=== PATIENT | male | born 1945 | race Caucasian/White ===

== ENCOUNTER 2016-08-16 13:12 | Inpatient (IN) | payer OTHER ==
[~2016-08-16] VITALS: Ht 177.8 cm; Wt 93.0 kg
[~2016-08-16 13:12] MED LIST: SODIUM CHLORIDE 0.9% 1000ML 1,000 ML IV SCH
--- NOTE | 2016-08-16 13:28 | DIAGNOSTIC IMAGING REPORT ---
HEAD CT NONCONTRAST CT DOSE: 638.56 mGycm HISTORY: Mental status change Stroke. TECHNIQUE: Multiaxial CT images of the head were performed without the use of intravenous contrast. Comparison: None. Findings: The paranasal sinuses and mastoid air cells are clear. Small left cerebellar infarct. Old right occipital infarct. Old left posterior parietal infarct. 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 No acute intracranial abnormality. Electronically signed by: Adolph Hernandez M.D. 08/16/2016 1:26 PM Dictated Date/Time: 08/16/2016 1:25 PM
[2016-08-16] MEDS ORDERED: METO25TA3 PO (13:45)
[2016-08-16] MEDS ORDERED: LOSA50TA6 PO (13:45)
[2016-08-16] MEDS ORDERED: PRAV20TA PO (13:45)
[2016-08-16] MEDS ORDERED: GLIP-199 PO (13:45)
[2016-08-16] MEDS ORDERED: HYDR-5688 PO (13:45)
[2016-08-16] MEDS ORDERED: FENO145T26 PO (13:45)
[2016-08-16] MEDS ORDERED: MAGN400T6 PO (13:47)
[2016-08-16 13:51] LABS: INR 1.1 (0.9-1.1); PARTIAL THROMBOPLASTIN RATIO 0.8; PROTHROMBIN TIME (PATIENT) 11.6 SECONDS (9.0-12.0)
[2016-08-16 13:57] LABS: BLOOD UREA NITROGEN 31 mg/dl (7-18); BUN/CREATININE RATIO 10.2 (10-20); CARBON DIOXIDE 24 mmol/L (21-32); CHLORIDE 104 mmol/L (98-107); GLUCOSE 288 mg/dl (70-99); POTASSIUM 4.1 mmol/L (3.5-5.1); SODIUM 139 mmol/L (136-145)
[2016-08-16 14:05] LABS: CKMB/CK RATIO 1.4 (0-3.0)
[2016-08-16] MEDS ORDERED: SODIUM CHLORIDE 0.9% 1000ML 1,000 ML IV STA (14:39)
[2016-08-16] MEDS ORDERED: ASPIRIN 81 MG CHEW PO STA (14:39)
[2016-08-16] MEDS ORDERED: METHYLPREDNISOLONE 125 MG VIAL IV STA (14:39)
[2016-08-16 15:26] LABS: HEMATOCRIT 38.7 % (42-52); MEAN CELL VOLUME 88.6 fL (80-100); MEAN CORPUSCULAR HEMOGLOBIN 30.4 pg (25-34); MEAN CORPUSCULAR HGB CONC 34.4 g/dl (32-36); MEAN PLATELET VOLUME 11.6 fL (7.4-10.4); PLATELET COUNT 149 K/uL (130-400); RED BLOOD COUNT 4.37 M/uL (4.7-6.1); WHITE BLOOD COUNT 7.93 K/uL (4.8-10.8)
[2016-08-16] MEDS ORDERED: ACETAMINOPHEN 325 MG TAB PO PRN (15:30)
[2016-08-16] MEDS ORDERED: ONDANSETRON INJ 2 MG/ML 2 ML VIAL IV PRN (15:30)
[2016-08-16] MEDS ORDERED: HydrALAZINE HCL 20 MG/ML VIAL IV. PRN (15:30)
[2016-08-16] MEDS ORDERED: ALUMINUM/MAGNESIUM/SIMETH (MAALOX MAX) 30 ML UDC PO PRN (15:30)
[2016-08-16] MEDS ORDERED: MAGNESIUM HYDROXIDE SUSP 30 ML UDC PO PRN (15:30)
[2016-08-16] MEDS ORDERED: METOPROLOL TARTRATE 1 MG/ML VIAL IV PRN (15:30)
[2016-08-16] MEDS ORDERED: NITROGLYCERIN 0.4 MG SL PER TAB CHARGE SL PRN (15:30)
[2016-08-16] MEDS ORDERED: POLYETHYLENE (MIRALAX) 17 GM PACK PO PRN (15:30)
[2016-08-16] MEDS ORDERED: PHARMACIST DISCHARGE MED REC CONSULT PRN (15:30)
[2016-08-16] MEDS ORDERED: DiphenhydrAMINE HCL 50 MG/ML VIAL IV PRN (15:30)
[2016-08-16] MEDS ORDERED: DEXTROSE 50% 50 ML SYR IV PRN (16:00)
[2016-08-16] MEDS ORDERED: GLUCOSE 40% GEL 15 GM TUBE PO PRN (16:00)
[2016-08-16] MEDS ORDERED: GLUCOSE 10 TABS/TUBE PO PRN (16:00)
[2016-08-16] MEDS ORDERED: GLUCAGON FOR INJ 1 MG VIAL SQ PRN (16:00)
[2016-08-16 16:11] LABS: BASO % 0.1 %; BASO ABS # 0.01 K/uL (0-0.2); COMPLETE YES; EOS % 0.3 %; IG% 0.1 %; LYMPH % 15.4 %; LYMPH ABS # 1.22 K/uL (1.2-3.4); NEUT % 79.1 %
--- NOTE | 2016-08-16 16:14 | History and Physical ---
History & Physical Date & Time of Service: Aug 16, 2016 at 15:42 Chief Complaint: stroke alert Primary Care Physician: No Doctor, Assigned History of Present Illness Source: patient, family (daughter- at bedside), clinic records, hospital records Patient is a pleasant 70 y/o male, with PMHx of HTN, T2DM, dyslipidemia, h/o a.fib, who presented to the ED because of stroke-like symptoms. According to the patient, he took a Hydrocodone this morning for pain; he has not taken this medication in sometime, but he has taken it in the past w/ no reaction. About an hour later, he was working outside when he started to feel generalized weakness, dizziness, diaphoresis, and nauseous. EMS was called and patient was brought to the ED. According to EMS, patient experienced slurred speech and a facial droop. While interviewing patient, he states his symptoms have completely resolved. According to the patient, he believes he was bit by a bee- he admits to past allergic reactions to bees. He has a swollen area noted to his lateral right wrist. Patient denies unilateral weakness. Patient denies h/o TIA/CVA, PE/DVT. He admits to a h/o a.fib but had a maze procedure about 7 years ago. He has not followed w/ a cardiology recently, and denies any palpitations or chest discomfort. According to the daughter, patient was told his kidney function "bumped" after he had the procedure, but heard nothing about it after. Patient had a kidney ultrasound about 1 year ago, but states he was told his kidneys are "thin," and that was it. Lesions are noted to right eye and forehead- according to the patient, he dropped cement and insulation on his head about 1 week ago; he denies h/o shingles/chicken pox. Patient denies any fever, chills, sweats, vision changes, CP, palpitations, edema, SOB, wheezing, cough, abdominal pain, vomiting, diarrhea, urinary symptoms, melena, numbness/tingling, muscle/joint pain, anxiety/depression, active bleeding, or new skin discoloration/changes. Past Medical/Surgical History PMHx: 1. T2DM 2. Dyslipidemia 3. h/o a.fib s/p maze procedure 4. HTN Surgical History: 1. s/p maze procedure Family History Patient reports no known family medical history. Social History Smoking Status: Former Smoker Alcohol Use: heavy (daily ) Marital Status: Housing status: lives with family Allergies Coded Allergies: No Known Allergies (Unverified , 08/16/16) Home Medications Scheduled Fenofibrate (Tricor ), 145 MG PO DAILY Glipizide (Glipizide Er), 20 MG PO DAILY Losartan Potassium (Cozaar), 50 MG PO DAILY Magnesium Oxide (Mag-Ox), 400 MG PO DAILY Metoprolol Succ (Toprol Xl) (Toprol-Xl), 12.5 MG PO DAILY Pravastatin (Pravachol ), 40 MG PO QPM Scheduled PRN Hydrocodone/Acetaminophen 5MG/325MG ([place] 5MG/325MG), 1 TABLET PO Q4 PRN for Pain Physical Exam Vital Signs Date Time Temp Pulse Resp B/P (MAP) Pulse Ox O2 Delivery O2 Flow Rate FiO2 08/16/16 14:36 96 18 131/80 100 Room Air 08/16/16 14:30 131/80 08/16/16 14:12 101 99 08/16/16 13:42 111 08/16/16 13:36 108 08/16/16 13:12 96 Room Air 08/16/16 13:12 36.4 102 22 120/93 96 Room Air General Appearance: no apparent distress Head: normocephalic, + pertinent finding (lesions noted to right eye and forehead) Eyes: PERRL ENT: hearing grossly normal Neck: supple Respiratory/Chest: lungs clear, no respiratory distress, no accessory muscle use, + decreased breath sounds (throughout all lung ely ) Cardiovascular: + irregularly irregular (rate controlled), + pertinent finding (distant heart sounds- no murmur appreciated ) Abdomen/GI: normal bowel sounds, non tender, soft Back: normal inspection Extremities/Musculoskelatal: no calf tenderness, no pedal edema, + swelling ( noted to right lateral wrist region w/ mild erythema ) Neurologic/Psych: no motor/sensory deficits, alert, normal mood/affect, oriented x 3 Skin: normal color, warm/dry, no rash Diagnostics Laboratory Results Results Past 24 Hours Test 08/16/16 13:15 08/16/16 13:54 08/16/16 15:00 Range/Units Prothrombin Time 11.6 9.0-12.0 SECONDS Prothromb Time International Ratio 1.1 0.9-1.1 Activated Partial Thromboplast Time 20.1 21.0-31.0 SECONDS Partial Thromboplastin Ratio 0.8 Sodium Level 139 136-145 mmol/L Potassium Level 4.1 3.5-5.1 mmol/L Chloride Level 104 98-107 mmol/L Carbon Dioxide Level 24 21-32 mmol/L Anion Gap 11.0 3-11 mmol/L Blood Urea Nitrogen 31 7-18 mg/dl Creatinine 3.00 0.60-1.40 mg/dl Est Creatinine Clear Calc Drug Dose 27.1 ml/min Estimated GFR () 23.6 Estimated GFR (Non- 20.4 BUN/Creatinine Ratio 10.2 10-20 Random Glucose 288 70-99 mg/dl Calcium Level 9.0 8.5-10.1 mg/dl Direct Bilirubin 0.2 0-0.2 mg/dl Aspartate Amino Transf (AST/SGOT) 20 15-37 U/L Alanine Aminotransferase (ALT/SGPT) 28 12-78 U/L Alkaline Phosphatase 48 45-117 U/L Total Creatine Kinase 59 39-308 U/L Creatine Kinase MB 0.8 0.5-3.6 ng/ml Creatine Kinase MB Ratio 1.4 0-3.0 Troponin I < 0.015 0-0.045 ng/ml Total Protein 7.8 6.4-8.2 gm/dl Albumin 3.8 3.4-5.0 gm/dl Lipase 410 73-393 U/L Bedside Glucose 299 70-99 mg/dl White Blood Count 7.93 4.8-10.8 K/uL Red Blood Count 4.37 4.7-6.1 M/uL Hemoglobin 13.3 14.0-18.0 g/dL Hematocrit 38.7 42-52 % Mean Corpuscular Volume 88.6 80-100 fL Mean Corpuscular Hemoglobin 30.4 25-34 pg Mean Corpuscular Hemoglobin Concent 34.4 32-36 g/dl Platelet Count 149 130-400 K/uL Mean Platelet Volume 11.6 7.4-10.4 fL RDW Standard Deviation 40.7 36.4-46.3 fL RDW Coefficient of Variation 12.6 11.5-14.5 % Diagnostic Radiology HEAD CT NONCONTRAST CT DOSE: 638.56 mGycm HISTORY: Mental status change Stroke. TECHNIQUE: Multiaxial CT images of the head were performed without the use of intravenous contrast. Comparison: None. Findings: The paranasal sinuses and mastoid air cells are clear. Small left cerebellar infarct. Old right occipital infarct. Old left posterior parietal infarct. 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 No acute intracranial abnormality. Electronically signed by: Adolph Hernandez M.D. 08/16/2016 1:26 PM Dictated Date/Time: 08/16/2016 1:25 PM The status of this report is Signed. Draft = Not yet reviewed or approved by Radiologist. Signed = Reviewed and approved by Radiologist. EKG JOSELITO BRITT ID:[id number] 16-AUG-2016 13:33:41 [facility] Atrial fibrillation with rapid ventricular response Nonspecific ST and T wave abnormality Abnormal ECG No previous ECGs available 25mm/s 10mm/mV 150Hz 8.0 SP2 12SL 241 JEANNIE: 13 Referred by: Unconfirmed Vent. rate 103 BPM MD interval * ms QRS duration 80 ms QT/QTc 298/390 ms P-R-T axes * - 97 1945 (70 yr) Male Room:[facility] Loc:15 Director Of Technology:RUFINO Simmons ind: Impression Assessment and Plan Patient is a pleasant 70 y/o male, with PMHx of HTN, T2DM, dyslipidemia, h/o a.fib, who presented to the ED because of stroke-like symptoms. ?TIA vs allergic reaction to bee sting: - Admit to tele for cardiac monitoring- a.fib w/ rates in low 100s at admission - EKG QAM and PRN w/ CP - Trend cardiac enzymes- initial enzymes negative - Stroke protocol: --PT/OT and speech evaluation --Aspiration/fall precautions --Dysphagia screen, advance diet as tolerated --Routine neuro checks --Elevate HOB - CT of head- unremarkable for acute intracranial findings - Obtain MRI brain combo, carotid US, and ECHO - ASA to 325 - Continue Mag-Ox supplement 400 mg daily- check mag level - IV Benadryl 25 mg q6 hrs PRN for allergic reaction- given IV 125 mg Solu- Medrol in ED - Continue Metoprolol 12.5 mg daily and IV Metoprolol 5 mg PRN for HR >125 - Consult neurology, appreciate recommendations ?LISSA on CKD, ?stage 4: - IV NSS @ 100 ml/hr - To obtain records from [facility] for baseline kidney function and kidney US - Consider nephrology consultation if kidney function does not improve - Follow PRP Dyslipidemia: - Statin doubled - Check lipid panel T2DM: - Hold Victoza and Glipizide - Continue Lantus 10 u HS - BSG ACHS w/ sliding insulin scale - Check hA1C Alcohol use: - Patient states he drank alcohol heavily until a couple of months ago- now he drinks a few light beers a night - Elevated lipase- repeat tomorrow AM GI Prophylaxis: Maalox PRN, IV Zofran PRN, Colace and/or Milk of Mag PRN DVT prophylaxis: Heparin 5000 units SQ q12 hrs, CANELO and SCDs Code Status: LEVEL I, FULL Dispo: From home, lives w/ family- social media project manager consulted PA Physician Supervision Note: I was present with PA during the history and exam. I discussed the case with the resident and agree with the findings and plan as documented in the note. Any exceptions or clarifications are listed here: 70 y/o M - acute dizziness, diaphoresis - may have been stung by bee which he harbors an allergy to. EMS howeveer reports that the pt had a facial droop and was slurring his speech He is therefore admitted for R/O TIA OE AAO x 3 S1,2 R CTAB NT, ND, BS+ No CCE P: ASA 325 Statin changed to Lipitor 40 and Fenofib held Allow for HTN Neurochecks and consult for neuro Documented By: Cedrick Riley Level of Care Telemetry Resuscitation Status FULL RESUSCITATION VTE Prophylaxis VTE Risk Assessment Done? Y/N: Yes Risk Level: Moderate Given or contraindicated: Unfractionated heparin SQ, T.E.D. Stockings, SCD's
[2016-08-16] MEDS ORDERED: IV FLUIDS COMPLETED PRN (16:15)
[2016-08-16 18:06] VITALS: BP 149/86; PULSE 96; TEMP 36.3; O2SAT 96; Ht 177.8 cm; Wt 93.0 kg
[2016-08-16] MEDS: SODIUM CHLORIDE 0.9% 1000ML 1,000 ML IV SCH (18:27)
[2016-08-16] MEDS: INSULIN ASPART 100 UNITS/ML 3 ML PEN SC SCH ×2 (19:09→22:05)
--- NOTE | 2016-08-16 19:47 | DIAGNOSTIC IMAGING REPORT ---
ORBIT RADIOGRAPHS 3 VIEWS HISTORY: pre-MRI screening. COMPARISON: Head CT performed earlier today. FINDINGS: There are no radiopaque foreign bodies identified within the orbits. IMPRESSION: No radiopaque foreign bodies identified within the orbits. Electronically signed by: Pradip Betancur M.D. 08/16/2016 7:45 PM Dictated Date/Time: 08/16/2016 7:45 PM
--- NOTE | 2016-08-16 20:40 | EMERGENCY ROOM VISIT NOTE ---
History Report prepared by Misael Law Under the Supervision of: Dr. Dwight Graham D.O. First contact with patient: 13:07 Stated Complaint: stroke alert History of Present Illness The patient is a 69 year old male who presents to the Emergency Room with complaints of a sudden stroke like incident that started twenty minutes prior to arrival. The patient states that he took 5 mg of hydrocodone today and felt nauseous and diaphoretic, which led him to the bathroom to vomit. The patient admits that he was experiencing diaphoresis, generalized weakness, dizziness, dysphasia, and shortness of breath. He admits that he has diabetes and takes medication for it. The patient denies taking any blood thinners. The patient admits that he is feeling back to normal now at 1328, but still is experiencing dysphasia. The patient's daughter states that he was working outside and may have been bit. She admits that the patient has a previous history atrial fibrillation but is not on medications. She denies that the patient has any previous kidney disease. Source of History: patient Onset: twenty minutes prior to arrival Position: other (global) Quality: other (generalized weakness) Timing: other (sudden) Modifying Factors (Worsening): other (hydrocodone) Associated Symptoms: + diaphoresis, + nausea, + vomiting, + weakness Review of Systems See HPI for pertinent positives & negatives. A total of 10 systems reviewed and were otherwise negative. Past Medical & Surgical Medical Problems: (1) Allergic reaction to bee sting (2) Bee sting allergy (3) Stroke-like symptoms Family History Patient reports no known family medical history. Social History Drug Use: none Marital Status: Housing Status: lives with family Occupation Status: retired Current/Historical Medications Scheduled Fenofibrate (Tricor ), 145 MG PO DAILY Glipizide (Glipizide Er), 20 MG PO DAILY Losartan Potassium (Cozaar), 50 MG PO DAILY Magnesium Oxide (Mag-Ox), 400 MG PO DAILY Metoprolol Succ (Toprol Xl) (Toprol-Xl), 12.5 MG PO DAILY Pravastatin (Pravachol ), 40 MG PO QPM Scheduled PRN Hydrocodone/Acetaminophen 5MG/325MG ([place] 5MG/325MG), 1 TABLET PO Q4 PRN for Pain Allergies Coded Allergies: No Known Allergies (Unverified , 08/16/16) Physical Exam Vital Signs Date Time Temp Pulse Resp B/P (MAP) Pulse Ox O2 Delivery O2 Flow Rate FiO2 08/16/16 16:20 120/95 08/16/16 16:15 97 120/95 99 08/16/16 16:10 97 100 08/16/16 16:05 94 99 08/16/16 16:00 98 99 08/16/16 15:55 97 100 08/16/16 15:50 90 98 08/16/16 15:45 95 98 08/16/16 15:40 95 98 08/16/16 15:35 95 99 08/16/16 15:30 97 100 08/16/16 15:25 98 99 08/16/16 15:20 98 100 08/16/16 15:15 102 99 08/16/16 15:10 98 100 08/16/16 15:05 97 100 08/16/16 15:01 121/74 08/16/16 15:00 97 96 08/16/16 14:55 97 99 08/16/16 14:50 96 99 08/16/16 14:45 96 08/16/16 14:40 97 100 08/16/16 14:36 96 18 131/80 100 Room Air 08/16/16 14:35 103 100 08/16/16 14:30 131/80 08/16/16 14:12 101 99 08/16/16 13:42 111 08/16/16 13:36 108 08/16/16 13:12 96 Room Air 08/16/16 13:12 36.4 102 22 120/93 96 Room Air Physical Exam GENERAL: alert, ill appearing, moderate distress EYE EXAM: normal conjunctiva, PERRL and EOM's intact OROPHARYNX: no exudate, no erythema, lips, buccal mucosa, and tongue normal and mucous membranes are moist NECK: supple, no nuchal rigidity, no adenopathy, non-tender LUNGS: Clear to auscultation. Normal chest wall mechanics HEART: Tachycardic. no murmurs, S1 normal and S2 normal ABDOMEN: abdomen soft, non-tender, normo-active bowel sounds, no masses, no rebound or guarding. BACK: Back is symmetrical on inspection and there is no deformity, no midline tenderness, no CVA tenderness. SKIN: no rashes and no bruising UPPER EXTREMITIES: upper extremities are grossly normal. LOWER EXTREMITIES: No pitting edema. NEURO EXAM: Awake alert oriented to person, place, and time. Normal sensorium, cranial nerves II-XII grossly intact, slurred speech, no gross weakness of arms , no gross weakness of legs. No drift. Finger to nose intact. Gross sensation intact. Medical Decision & Procedures ER Provider Diagnostic Interpretation: CT scan: Radiology provided the following report CT : The preliminary reading from radiology is the following HEAD CT NONCONTRAST CT DOSE: 638.56 mGycm HISTORY: Mental status change Stroke. TECHNIQUE: Multiaxial CT images of the head were performed without the use of intravenous contrast. Comparison: None. Findings: The paranasal sinuses and mastoid air cells are clear. Small left cerebellar infarct. Old right occipital infarct. Old left posterior parietal infarct. 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 No acute intracranial abnormality. Electronically signed by: Adolph Hernandez M.D. 08/16/2016 1:26 PM Dictated Date/Time: 08/16/2016 1:25 PM Laboratory Results 08/16/16 15:00 Red Blood Count 4.37, Mean Corpuscular Volume 88.6, Mean Corpuscular Hemoglobin 30.4, Mean Corpuscular Hemoglobin Concent 34.4, Mean Platelet Volume 11.6, Neutrophils (%) (Auto) 79.1, Lymphocytes (%) (Auto) 15.4, Monocytes (%) (Auto) 5.0, Eosinophils (%) (Auto) 0.3, Basophils (%) (Auto) 0.1, Neutrophils # (Auto) 6.27, Lymphocytes # (Auto) 1.22, Monocytes # (Auto) 0.40, Eosinophils # (Auto) 0.02, Basophils # (Auto) 0.01 08/16/16 13:15 Test 08/16/16 13:15 08/16/16 15:00 Prothrombin Time 11.6 SECONDS (9.0-12.0) Prothromb Time International Ratio 1.1 (0.9-1.1) Activated Partial Thromboplast Time 20.1 SECONDS (21.0-31.0) Partial Thromboplastin Ratio 0.8 Anion Gap 11.0 mmol/L (3-11) Est Creatinine Clear Calc Drug Dose 27.1 ml/min Estimated GFR () 23.6 Estimated GFR (Non- 20.4 BUN/Creatinine Ratio 10.2 (10-20) Calcium Level 9.0 mg/dl (8.5-10.1) Total Bilirubin 0.6 mg/dl (0.2-1) Direct Bilirubin 0.2 mg/dl (0-0.2) Aspartate Amino Transf (AST/SGOT) 20 U/L (15-37) Alanine Aminotransferase (ALT/SGPT) 28 U/L (12-78) Alkaline Phosphatase 48 U/L (45-117) Total Creatine Kinase 59 U/L (39-308) Creatine Kinase MB 0.8 ng/ml (0.5-3.6) Creatine Kinase MB Ratio 1.4 (0-3.0) Troponin I < 0.015 ng/ml (0-0.045) Total Protein 7.8 gm/dl (6.4-8.2) Albumin 3.8 gm/dl (3.4-5.0) Lipase 410 U/L (73-393) Hepatitis C Antibody Screen NEG (NEG) White Blood Count 7.93 K/uL (4.8-10.8) Red Blood Count 4.37 M/uL (4.7-6.1) Hemoglobin 13.3 g/dL (14.0-18.0) Hematocrit 38.7 % (42-52) Mean Corpuscular Volume 88.6 fL (80-100) Mean Corpuscular Hemoglobin 30.4 pg (25-34) Mean Corpuscular Hemoglobin Concent 34.4 g/dl (32-36) Platelet Count 149 K/uL (130-400) Mean Platelet Volume 11.6 fL (7.4-10.4) Neutrophils (%) (Auto) 79.1 % Lymphocytes (%) (Auto) 15.4 % Monocytes (%) (Auto) 5.0 % Eosinophils (%) (Auto) 0.3 % Basophils (%) (Auto) 0.1 % Neutrophils # (Auto) 6.27 K/uL (1.4-6.5) Lymphocytes # (Auto) 1.22 K/uL (1.2-3.4) Monocytes # (Auto) 0.40 K/uL (0.11-0.59) Eosinophils # (Auto) 0.02 K/uL (0-0.5) Basophils # (Auto) 0.01 K/uL (0-0.2) RDW Standard Deviation 40.7 fL (36.4-46.3) RDW Coefficient of Variation 12.6 % (11.5-14.5) Immature Granulocyte % (Auto) 0.1 % Immature Granulocyte # (Auto) 0.01 K/uL (0.00-0.02) Laboratory results per my review. Medications Administered Medications (Trade) Dose Ordered Sig/Christ Route Start Time Stop Time Status Last Admin Dose Admin Sodium Chloride 1,000 ml @ 999 mls/hr Q1H1M STAT IV 08/16/16 14:39 08/16/16 15:39 DC 08/16/16 14:53 999 MLS/HR Aspirin (Aspirin Chew) 324 mg NOW STAT PO 08/16/16 14:39 08/16/16 14:40 DC 08/16/16 14:54 324 MG Methylprednisolone Sodium Succinate (Solu-Medrol IV) 125 mg NOW STAT IV 08/16/16 14:39 08/16/16 14:40 DC 08/16/16 14:54 125 MG Sodium Chloride 1,000 ml @ 100 mls/hr Q10H IV 08/16/16 15:30 09/15/16 15:29 08/16/16 18:27 100 MLS/HR Insulin Aspart (novoLOG ASPART) SLIDING SCALE G... ACHS SC 08/16/16 16:00 09/15/16 15:59 08/16/16 19:09 7 UNITS ECG Indication: other (stroke) Rate (beats per minute): 103 Rhythm: atrial fibrillation Findings: nonspecific-ST abn (Lateral), left axis deviation ED Course ED COURSE: Vital signs were reviewed and showed hypertensive and tachycardic The patients medical record was reviewed The above diagnostic studies were performed and reviewed. ED treatments and interventions as stated above. Medication Reconciliation: I attest that I have personally reviewed the patient' s current medication list. 1310: The patient was evaluated in room A01. A complete history and physical examination was performed. 1415: The Daughter states that he was working outside and may have been bit. She admits that the patient has a previous history atrial fibrillation but is not on medications. She denies that the patient has any previous kidney disease. 1439: Solu-Medrol IV 125 mg IV, Aspiring 324 mg PO, Sodium Chloride 1000 ml @ 999 mls/hr IV. 1344: I discussed the patient's case with Dr. Arellano [facility] Hospitalist. He understands the patient's condition and agrees to accept the patient. I updated the patient on the treatment plan and he accepts. The patient will further be evaluated. Medical Decision Differential Diagnosis includes but is not limited to ischemic Stroke, hemorrhagic stroke, bells palsy, mass, neoplasm, migraine headache, seizure, subarachnoid hemorrhage, TIA, and transient global amnesia. Patient is a 70-year-old who EMS called and for altered mental status associated with slurred speech and left upper extremity weakness. Patient was evaluated in the hallway immediately taken to CAT scan. A stroke alert was called. Patient gave 2 separate accounts of what occurred today. Uncertain of the true time of onset. On my evaluation he has minimal slurred speech but is otherwise completely neurologically intact. CBC was unremarkable. Creatinine was significantly elevated at 3 off of a baseline of 1.7. Troponin was negative. CT head shows old infarcts. EKG shows A. fib. Patient family were updated at bedside. He did give a history that this could've been secondary to a bee sting which is very allergic to. He did have swelling on his right forearm. He was given Benadryl. He was also given steroids. Uncertain of the true cause of his symptoms but this could be stroke versus allergic reaction. I do not believe that it secondary to his narcotic they took as he has taken this before. Consults Time Called: 1344 Consulting Physician: Dr. Arellano [facility] Hospitalist Returned Call: 1344 I discussed the patient's case with Dr. Arellano [facility] Hospitalist. He understands the patient's condition and agrees to accept the patient. I updated the patient on the treatment plan and he accepts. The patient will further be evaluated. Impression Primary Impression: Slurred speech Additional Impression: Altered mental status Scribe Attestation The scribe's documentation has been prepared under my direction and personally reviewed by me in its entirety. I confirm that the note above accurately reflects all work, treatment, procedures, and medical decision making performed by me. Departure Information Dispostion Being Evaluated By Hospitalist (Dr. Arellano) Stroke History Time Last Known Well uncertain Stroke t-PA Criteria Reviewed Does NOT meet criteria for t-PA Reason t-PA Not Given Treatment not indicated Problem Qualifiers Additional Impression: Altered mental status Altered mental status type: unspecified Qualified Codes: R41.82 - Altered mental status, unspecified
--- NOTE | 2016-08-16 20:41 | DIAGNOSTIC IMAGING REPORT ---
MRI OF THE BRAIN WITHOUT CONTRAST CLINICAL HISTORY: Stroke alert. Slurred speech. Facial droop. Possible allergic reaction. COMPARISON STUDY: Head CT performed earlier today. TECHNIQUE: Utilizing a 1.5 Laurie magnet and dedicated coil, multiplanar, multiecho imaging of the brain was performed without IV contrast. FINDINGS: There are no areas of restricted diffusion. No acute intracranial hemorrhage, midline shift or mass effect is present. There are several old lacunar infarcts within the left cerebellar hemisphere. Encephalomalacia within the right occipital and left parietal lobes reflects old infarcts. Ventricular system is unremarkable for age. The basilar cisterns are patent. There are no extra-axial collections. Periventricular white matter T2 hyperintense foci suggest mild small vessel disease. Flow-voids for the major intracranial vessels are present. There is mild mucosal thickening within the sinuses. Calvarial signal is normal. There is no intracranial mass on this unenhanced exam. IMPRESSION: 1. No acute intracranial findings. 2. Multiple old infarcts, as detailed above. Electronically signed by: Pradip Betancur M.D. 08/16/2016 8:39 PM Dictated Date/Time: 08/16/2016 8:35 PM
[2016-08-16 20:56] VITALS: BP 132/82; PULSE 96; TEMP 36.5; O2SAT 96
[2016-08-16] MEDS ORDERED: PRAVASTATIN SOD 40 MG TAB PO SCH (21:00)
[2016-08-16] MEDS ORDERED: INSULIN GLARGINE SOLOSTAR 100 UNITS/ML 3 ML PEN SQ SCH (21:00)
--- NOTE | 2016-08-16 21:03 | DIAGNOSTIC IMAGING REPORT ---
CAROTID ARTERY ULTRASOUND CLINICAL HISTORY: Stroke COMPARISON STUDY: None. TECHNIQUE: Real-time, grayscale, and color Doppler sonography of the carotid and vertebral arteries was performed. Images were viewed in the transverse and longitudinal planes. FINDINGS: There is mild atherosclerotic plaque. Velocity measurements are listed below. COMMON CAROTID PEAK SYSTOLIC VELOCITY (CM/S): RIGHT 64 LEFT 78 ICA PEAK SYSTOLIC VELOCITY (CM/S): RIGHT 56 LEFT 63 Systolic ratios between the internal to common carotid arteries are normal. Antegrade flow is seen in the vertebral arteries. The external carotid arteries are patent. IMPRESSION: No evidence of a hemodynamically significant stenosis. Electronically signed by: Pradip Betancur M.D. 08/16/2016 9:01 PM Dictated Date/Time: 08/16/2016 8:59 PM
[2016-08-16] MEDS: HEPARIN SOD 5000 UNIT/0.5 ML CARP SQ SCH (21:08)
[2016-08-16 23:39] VITALS: BP 133/71; PULSE 98; TEMP 36.7; O2SAT 95
[2016-08-17] MEDS ORDERED: NURSING VERBAL MED ORDER ONE ×2 (00:30→15:00)
[2016-08-17] MEDS ORDERED: INSULIN ASPART 100 UNITS/ML 3 ML PEN SC STA (00:33)
[2016-08-17 03:09] VITALS: BP 110/68; PULSE 86; TEMP 36.5; O2SAT 98
[2016-08-17] MEDS: SODIUM CHLORIDE 0.9% 1000ML 1,000 ML IV SCH (05:03)
[2016-08-17 05:55] LABS: HEMATOCRIT 32.6 % (42-52); MEAN CELL VOLUME 87.9 fL (80-100); MEAN CORPUSCULAR HEMOGLOBIN 30.5 pg (25-34); MEAN CORPUSCULAR HGB CONC 34.7 g/dl (32-36); MEAN PLATELET VOLUME 11.8 fL (7.4-10.4); PLATELET COUNT 150 K/uL (130-400); RED BLOOD COUNT 3.71 M/uL (4.7-6.1); WHITE BLOOD COUNT 7.51 K/uL (4.8-10.8)
[2016-08-17 06:30] LABS: BUN/CREATININE RATIO 16.1 (10-20); CALCIUM 8.6 mg/dl (8.5-10.1); CREATININE 2.4 mg/dl (0.60-1.40); MAGNESIUM 2.2 mg/dl (1.8-2.4); POTASSIUM 4.4 mmol/L (3.5-5.1)
[2016-08-17 06:33] LABS: CHOLESTEROL/HDL RATIO 4.3
[2016-08-17 07:02] LABS: ESTIMATED AVERAGE GLUCOSE 163 mg/dl; HA1C FLAG Normal (Normal)
[2016-08-17 07:51] VITALS: BP 112/70; PULSE 93; TEMP 36.5; O2SAT 99
[2016-08-17] MEDS: INSULIN ASPART 100 UNITS/ML 3 ML PEN SC SCH ×2 (07:57→11:51)
[2016-08-17 08:00] VITALS: O2SAT 99
[2016-08-17] MEDS: HEPARIN SOD 5000 UNIT/0.5 ML CARP SQ SCH (08:05)
[2016-08-17] MEDS ORDERED: ATORVASTATIN 40 MG TAB PO SCH (09:00)
[2016-08-17] MEDS ORDERED: MAGNESIUM OXIDE 400 MG TAB PO SCH (09:00)
[2016-08-17] MEDS ORDERED: METOPROLOL SUCC 25MG EXT REL TAB PO SCH (09:00)
[2016-08-17] MEDS ORDERED: FENOFIBRATE 145 MG TAB PO SCH (09:00)
[2016-08-17] MEDS ORDERED: ASPIRIN 81 MG ECTAB PO SCH (09:00)
--- NOTE | 2016-08-17 11:30 | Neurology Consultation ---
Neurology Consultation Date of Consultation: Aug 17, 2016. Attending Physician: Pepe Urena D.O. Primary Care Physician: Fredi Navarro M.D. Reason for Consultation: Strokelike symptoms History of Present Illness Source: patient, hospital records The patient is a 70-year-old male who was brought to the emergency department by EMS for further assessment of possible strokelike symptoms. The patient reports that he was feeling dizzy, nauseous, and diaphoretic shortly after taking some of his hydrocodone. He was working in his garage at home at the time of symptom onset and also reports that his symptoms began after being stung by a hornet on his right wrist. He does have some swelling located on the right wrist and did find a small puncture wound likely from a stinger. EMS documentation indicated the presence of slurred speech and a left facial droop. These findings were apparently not evident while the patient was being evaluated in the emergency department. Past medical history notable for atrial fibrillation and stroke. An electrocardiogram revealed atrial fibrillation. He is not prescribed an anticoagulant. Recent medical history also notable for a healing vesicular rash with scabs corresponding perfectly to a right V1 distribution which respects the midline. Upon further questioning, the patient has been attributing this rash to some exposure to fiberglass insulation that occurred about 1-2 weeks ago. He recalls having clear vesicles along the top of his head and for head and remembers some itching and stinging sensation. He reports popping the vesicles with his fingernails and also applying duct taped to his for head to remove what he thought was embedded particles of fiberglass insulation. Past Medical/Surgical History Medical Problems: (1) Altered mental status Status: Acute (2) Slurred speech Status: Acute Social History Alcohol Use: heavy (daily ) Drug Use: none Marital Status: Housing Status: lives with family Occupation Status: retired Allergies Coded Allergies: No Known Allergies (Unverified , 08/16/16) Current Inpatient Medications Current Inpatient Medications Medications (Trade) Dose Ordered Sig/Christ Route Start Time Stop Time Status Last Admin Dose Admin Heparin Sodium (Porcine) (Heparin Sq 5000 Unit/0.5ml) 5,000 unit Q12 SQ 08/16/16 21:00 09/15/16 20:59 08/17/16 08:05 5,000 UNIT Sodium Chloride 1,000 ml @ 100 mls/hr Q10H IV 08/16/16 15:30 09/15/16 15:29 08/17/16 05:03 100 MLS/HR Acetaminophen (Tylenol Tab) 650 mg Q4H PRN PO 08/16/16 15:30 09/15/16 15:29 Al Hydrox/Mg Hydrox/Simethicone (Maalox Max Susp) 15 ml Q4H PRN PO 08/16/16 15:30 09/15/16 15:29 Magnesium Hydroxide (Milk Of Magnesia Susp) 30 ml Q12H PRN PO 08/16/16 15:30 09/15/16 15:29 Ondansetron HCl (Zofran Inj) 4 mg Q6H PRN IV 08/16/16 15:30 09/15/16 15:29 Nitroglycerin (Nitrostat Tab) 0.4 mg UD PRN SL 08/16/16 15:30 09/15/16 15:29 Polyethylene (Miralax Powder Packet) 17 gm DAILY PRN PO 08/16/16 15:30 09/15/16 15:29 Magnesium Oxide (Mag-Ox Tab) 400 mg DAILY PO 08/17/16 09:00 09/16/16 08:59 08/17/16 08:01 400 MG Metoprolol Succinate (Toprol Xl Tab) 12.5 mg DAILY PO 08/17/16 09:00 09/16/16 08:59 08/17/16 08:01 12.5 MG Diphenhydramine HCl (Benadryl Inj) 25 mg Q6H PRN IV 08/16/16 15:30 09/15/16 15:29 Metoprolol Tartrate (Lopressor Iv) 5 mg Q6 PRN IV 08/16/16 15:30 09/15/16 15:29 Hydralazine HCl (HydrALAZINE INJ) 10 mg Q6H PRN IV. 08/16/16 15:30 09/15/16 15:29 Insulin Aspart (novoLOG ASPART) SLIDING SCALE G... ACHS SC 08/16/16 16:00 09/15/16 15:59 08/17/16 07:57 7 UNITS Insulin Glargine (Lantus Solostar Pen) 10 unit HS SQ 08/16/16 21:00 09/15/16 20:59 08/16/16 22:07 10 UNIT Aspirin (Ecotrin Tab) 81 mg QAM PO 08/17/16 09:00 09/16/16 08:59 08/17/16 08:01 81 MG Miscellaneous Information (Pharmacist Discharge Med Rec Consult) 1 ea UD PRN N/A 08/16/16 15:30 09/15/16 15:29 Glucose (Glucose 40% Gel) 15-30 GRAMS 15 GRAMS... UD PRN PO 08/16/16 16:00 09/15/16 15:59 Glucose (Glucose Chew Tab) 4-8 Tablets 4 Tabl... UD PRN PO 08/16/16 16:00 09/15/16 15:59 Dextrose (Dextrose 50% 50ML Syringe) 25-50ML OF 50% DW IV FOR... UD PRN IV 08/16/16 16:00 09/15/16 15:59 Glucagon (Glucagon Inj) 1 mg UD PRN SQ 08/16/16 16:00 09/15/16 15:59 Miscellaneous (Iv Fluids Completed) 1 ea PRN PRN N/A 08/16/16 16:15 08/16/17 16:14 Atorvastatin Calcium (Lipitor Tab) 40 mg QAM PO 08/17/16 09:00 09/16/16 08:59 08/17/16 08:01 40 MG Physical Exam Vital Signs (Past 24 Hrs): Date Time Temp Pulse Resp B/P (MAP) Pulse Ox O2 Delivery O2 Flow Rate FiO2 08/17/16 07:51 36.5 93 20 112/70 (84) 99 Room Air 08/17/16 04:00 Room Air 08/17/16 03:09 36.5 86 18 110/68 (82) 98 Room Air 08/17/16 00:00 Room Air 08/16/16 23:39 36.7 98 18 133/71 (91) 95 Room Air 08/16/16 20:56 36.5 96 18 132/82 (99) 96 Room Air 08/16/16 20:00 Room Air 08/16/16 18:06 36.3 96 18 149/86 96 Room Air 08/16/16 17:44 129/90 08/16/16 17:38 36.4 92 18 126/79 98 6/15/17 17:35 92 98 6/15/17 17:30 96 99 6/15/17 17:25 97 100 6/15/17 17:20 97 99 6/15/17 17:15 97 99 6/15/17 17:10 101 100 6/15/17 17:05 99 99 6/15/17 17:01 126/79 6/15/17 17:00 96 99 6/15/17 16:55 94 99 6/15/17 16:50 93 99 6/15/17 16:45 90 99 6/15/17 16:40 94 99 6/15/17 16:35 93 100 6/15/17 16:30 96 99 6/15/17 16:25 97 99 6/15/17 16:20 120/95 615/17 16:15 97 120/95 99 6/15/17 16:10 97 100 /15/17 16:05 94 99 6/15/17 16:00 98 99 6/15/17 15:55 97 100 /15/17 15:50 90 98 6/15/17 15:45 95 98 6/15/17 15:40 95 98 6/15/17 15:35 95 99 6/15/17 15:30 97 100 6/15/17 15:25 98 99 6/15/17 15:20 98 100 6/15/17 15:15 102 99 6/15/17 15:10 98 100 6/15/17 15:05 97 100 /15/17 15:01 121/74 6/15/17 15:00 97 96 6/15/17 14:55 97 99 6/15/17 14:50 96 99 6/15/17 14:45 96 6/15/17 14:40 97 100 6/15/17 14:36 96 18 131/80 100 Room Air 6/15/17 14:35 103 100 6/15/17 14:30 131/80 6/15/17 14:12 101 99 6/15/17 13:42 111 6/15/17 13:36 108 6/15/17 13:12 96 Room Air 6/15/17 13:12 36.4 102 22 120/93 96 Room Air The patient is alert and fully oriented. Attention and concentration normal. Recent and remote memory intact. Normal spontaneous speech pattern. Fund of knowledge and vocabulary normal. Visual ely full to confrontation. Visual acuity normal bilaterally. Pupils equal round reactive to light and accommodation. Eye movements normal. Facial sensation intact. There is no facial droop. Palate elevates to midline. Tongue protrudes to midline. Shoulder shrug and hearing intact. Sensation intact for the arms and legs. Deep tendon reflexes normoactive and symmetric for the arms and legs. Plantar responses downgoing. There is no dysmetria with finger to nose or heel to gonzalez. There is no dysdiadochokinesia. There is normal strength and tone for the arms and legs bilaterally. No atrophy. No abnormal movements observed. There are multiple, healing, erythematous, lesions with associated scabs overlying the right for head, right periorbital area, above the eye, and top of the right head. These lesions respect the midline. The sclera of the right eye appears normal. Laboratory Results Past 24 Hours: 08/17/16 05:41 08/17/16 05:41 Test 08/16/16 13:15 08/16/16 15:00 08/16/16 21:00 08/16/16 21:01 Prothrombin Time 11.6 SECONDS (9.0-12.0) Prothromb Time International Ratio 1.1 (0.9-1.1) Activated Partial Thromboplast Time 20.1 SECONDS (21.0-31.0) Partial Thromboplastin Ratio 0.8 Total Bilirubin 0.6 mg/dl (0.2-1) Direct Bilirubin 0.2 mg/dl (0-0.2) Aspartate Amino Transf (AST/SGOT) 20 U/L (15-37) Alanine Aminotransferase (ALT/SGPT) 28 U/L (12-78) Alkaline Phosphatase 48 U/L (45-117) Total Creatine Kinase 59 U/L (39-308) Total Protein 7.8 gm/dl (6.4-8.2) Albumin 3.8 gm/dl (3.4-5.0) Hepatitis C Antibody Screen NEG (NEG) Immature Granulocyte % (Auto) 0.1 % White Blood Count 7.93 K/uL (4.8-10.8) Red Blood Count 4.37 M/uL (4.7-6.1) Hemoglobin 13.3 g/dL (14.0-18.0) Hematocrit 38.7 % (42-52) Mean Corpuscular Volume 88.6 fL (80-100) Mean Corpuscular Hemoglobin 30.4 pg (25-34) Mean Corpuscular Hemoglobin Concent 34.4 g/dl (32-36) Platelet Count 149 K/uL (130-400) Mean Platelet Volume 11.6 fL (7.4-10.4) Neutrophils (%) (Auto) 79.1 % Lymphocytes (%) (Auto) 15.4 % Monocytes (%) (Auto) 5.0 % Eosinophils (%) (Auto) 0.3 % Basophils (%) (Auto) 0.1 % Neutrophils # (Auto) 6.27 K/uL (1.4-6.5) Lymphocytes # (Auto) 1.22 K/uL (1.2-3.4) Monocytes # (Auto) 0.40 K/uL (0.11-0.59) Eosinophils # (Auto) 0.02 K/uL (0-0.5) Basophils # (Auto) 0.01 K/uL (0-0.2) Immature Granulocyte # (Auto) 0.01 K/uL (0.00-0.02) Creatine Kinase MB Ratio (0-3.0) Bedside Glucose 371 mg/dl (70-99) Test 08/16/16 22:00 08/17/16 05:41 Creatine Kinase MB 0.7 ng/ml (0.5-3.6) Troponin I < 0.015 ng/ml (0-0.045) Red Blood Count 3.71 M/uL (4.7-6.1) Mean Corpuscular Volume 87.9 fL (80-100) Mean Corpuscular Hemoglobin 30.5 pg (25-34) Mean Corpuscular Hemoglobin Concent 34.7 g/dl (32-36) RDW Standard Deviation 40.5 fL (36.4-46.3) RDW Coefficient of Variation 12.5 % (11.5-14.5) Mean Platelet Volume 11.8 fL (7.4-10.4) Anion Gap 9.0 mmol/L (3-11) Est Creatinine Clear Calc Drug Dose 33.8 ml/min Estimated GFR () 31.0 Estimated GFR (Non- 26.7 BUN/Creatinine Ratio 16.1 (10-20) Estimated Average Glucose 163 mg/dl Hemoglobin A1c 7.3 % (4.5-5.6) Calcium Level 8.6 mg/dl (8.5-10.1) Magnesium Level 2.2 mg/dl (1.8-2.4) Triglycerides Level 122 mg/dl (0-150) Cholesterol Level 146 mg/dl (0-200) HDL Cholesterol 34 mg/dl LDL Cholesterol, Calculated 88 mg/dl VLDL Cholesterol, Calculated 24 mg/dl Cholesterol/HDL Ratio 4.3 Lipase 139 U/L (73-393) Imaging I reviewed the images and radiologist's interpretation of the recently completed brain MRI. There is no evidence of acute or subacute stroke. Multiple old chronic infarcts observed within the left cerebellum, right occipital region , and left parietal lobe. A carotid ultrasound is unremarkable. Impression Possible TIA presenting with transient slurred speech and a left facial droop according to EMS documentation. This patient does have atrial fibrillation which would be a significant risk factor for cardioembolic stroke. His brain MRI does reveal multiple infarcts in several different vascular territories which would also consistent with a history of 's previous previous cardioembolism. This patient probably has healing shingles affecting the right V1 distribution. I doubt these lesions are related to fiberglass exposure as the patient describes. The significance of the hydrocodone consumption and reported hornet sting on his right wrist in the context of his neurological presentation is undetermined. Plan This patient should probably be offered anticoagulation for stroke risk reduction. I do not think there is any specific treatment to offer this patient for what I suspect is healing shingles affecting the right V1. However, he should probably have some outpatient follow-up with ophthalmology. He should also exclude himself from contact with infants and other individuals who may not be immune to varicella until the cutaneous lesions have healed. Supportive medical care. Please contact me if I may be of further assistance.
[2016-08-17 11:31] VITALS: BP 112/70; PULSE 97; TEMP 37.1; O2SAT 99
[2016-08-17 12:00] VITALS: O2SAT 99
[2016-08-17] MEDS ORDERED: EPP3/2 IM (13:01)
[2016-08-17] MEDS ORDERED: RIVA1TAB4 PO (13:01)
--- NOTE | 2016-08-17 13:17 | Discharge Instructions ---
Discharge Instructions Date of Service Aug 17, 2016. Admission Reason for Admission: Stroke-Like Symptoms Discharge Discharge Diagnosis / Problem: Dizziness, shingles, allergic reaction Discharge Goals Goal(s): Decrease discomfort, Improve function, Increase independence, Improve disease control, Learn about illness, Diagnostic testing, Therapeutic intervention, Prevent Disease Progression Activity Recommendations Activity Limitations: resume your previous activity Exercise/Sports Limitations: none . Instructions / Follow-Up Instructions / Follow-Up Patient to be discharged home Also noted likely shingles on forehead, please stay away from infants and mothers until lesions completely heal Please note addition of xarelto 15 mg tablet once a day for anticoagulation benefit with history of atrial fibrillation and old strokes noted on imaging Also will provide epipen for emergency use if allergic reaction Prescriptions sent electronically to pharmacy Please follow up with Dr Kaur in 1-2 weeks Current Hospital Diet Patient's current hospital diet: AHA Diet (Heart Healthy), Diabetes Type 2 Diet Discharge Diet Recommended Diet: AHA Diet (Heart Healthy), Diabetes Type 2 Diet Pending Studies Studies pending at discharge: no Laboratory Results Hemoglobin A1c Test 08/17/16 05:41 Range/Units Estimated Average Glucose 163 mg/dl Hemoglobin A1c 7.3 H 4.5-5.6 % Lipid Panel Test 08/17/16 05:41 Range/Units Triglycerides Level 122 0-150 mg/dl Cholesterol Level 146 0-200 mg/dl HDL Cholesterol 34 mg/dl Cholesterol/HDL Ratio 4.3 LDL Cholesterol, Calculated 88 mg/dl Medical Emergencies . Who to Call and When: Medical Emergencies: If at any time you feel your situation is an emergency, please call 911 immediately. . Non-Emergent Contact Non-Emergency issues call your: Primary Care Provider Call Non-Emergent contact if: you have a fever, your pain is worsening . . "Provider Documentation" section prepared by Pepe Urena. . VTE Core Measure Inpt VTE Proph given/why not?: Unfractionated heparin SQ, T.E.D. Stockings, SCD 's
--- NOTE | 2016-08-17 13:56 | Discharge Summary ---
Discharge Summary Date of Service Aug 17, 2016. Discharge Summary Admission Date: Aug 16, 2016 at 16:21 Discharge Date: Aug 17, 2016 Discharge Disposition: Home Principal Diagnosis: TIA, allergic reaction Consultations: Neurology Medication Reconciliation New Medications: Epinephrine (Epipen) 0.3 Mg/0.3 Ml Inj 0.3 MG IM UD, #1 BOX Rivaroxaban (Xarelto) 20 Mg Tab 20 MG PO DAILY for 30 Days, #30 TABS Continued Medications: Fenofibrate (Tricor ) 145 Mg Tab 145 MG PO DAILY, TAB Glipizide (Glipizide Er) 10 Mg Tab 20 MG PO DAILY, TAB 3 Refills Hydrocodone/Acetaminophen 5MG/325MG ([place] 5MG/325MG) Tab 1 TABLET PO Q4 PRN for Pain, TAB PRN PAIN Losartan Potassium (Cozaar) 50 Mg Tab 50 MG PO DAILY, TAB Magnesium Oxide (Mag-Ox) 400 Mg Tab 400 MG PO DAILY, TAB Metoprolol Succ (Toprol Xl) (Toprol-Xl) 25 Mg Tabcr 12.5 MG PO DAILY, #30 TAB Pravastatin (Pravachol ) 20 Mg Tab 40 MG PO QPM, TAB Discharge Exam Review of Systems: Constitutional: No fever, No chills, No sweats, No weight loss, No weakness Eyes: No worsening of vision, No eye pain, No redness, No discharge ENT: No hearing loss, No unusual epistaxis, No nasal symptoms, No sore throat Respiratory: No cough, No sputum, No wheezing, No shortness of breath Cardiovascular: No chest pain, No orthopnea, No PND, No edema Abdomen: No pain, No nausea, No vomiting, No diarrhea Musculoskeletal: No joint pain, No muscle pain, No swelling, No calf pain Genitourinary - Male: No hematuria, No dysuria, No urinary frequency, No urinary urgency Neurologic: No memory loss, No paralysis, No weakness, No numbness/tingling Psychiatric: No depression symptoms, No anhedonism, No anxiety, No insomnia Physical Exam: General Appearance: WD/WN, no apparent distress Eyes: normal inspection, PERRL, EOMI, sclerae normal Neck: supple, no adenopathy, thyroid normal, no JVD Respiratory/Chest: chest non-tender, lungs clear, normal breath sounds, no respiratory distress Cardiovascular: regular rate, rhythm, no edema, no gallop, no JVD Abdomen / GI: normal bowel sounds, non tender, soft, no organomegaly Extremities: normal inspection, no calf tenderness, normal capillary refill , no pedal edema Neurologic/Psychiatric: alert, normal mood/affect, normal reflexes, oriented x 3 Skin: normal color, warm/dry, + rash (V1 distribution, lesions scabbing over on right side of head/forehead) Hospital Course Patient is a pleasant 70 y/o male, with PMHx of HTN, T2DM, dyslipidemia, h/o a.fib, who presented to the ED with dizziness, generalized weakness after bee sting. Pt noted difficulty swallowing as well as slurred speech and arm swelling that lasted for about 30 min as well ?TIA vs allergic reaction: - Admitted to tele, no further neuro deficits - EKG noted atrial fibrillation rate controlled - Trend cardiac enzymes neg - Stroke protocol: --PT/OT and speech evaluation --Aspiration/fall precautions --Dysphagia screen, advance diet as tolerated --Routine neuro checks --Elevate HOB - CT of head - Old right occipital infarct. Old left posterior parietal infarct. - Obtain MRI brain combo - There are several old lacunar infarcts within the left cerebellar hemisphere. Encephalomalacia within the right occipital and left parietal lobes reflects old infarcts - Carotid US unremarkable - ECHO pending - Cont ASA to 325 - Continue Metoprolol 12.5 mg PO daily - Consult neurology, appreciate recommendations, would start AC of xarelto 15 mg PO daily due to elec CHADsVASC score and also in light of likely old infarcts noted on CT/MRI head Atrial fibrillation - Rate controlled, started on xarelto 15 mg PO daily LISSA on CKD, unknown chronicity -Improving with IVF, Cr down to 2.4 from 3.0 - To obtain records from [facility] for baseline kidney function and kidney US Dyslipidemia: - Pravastatin 40 mg PO daily - Lipid panel LDL 88 TG 122 HDL 34 T2DM: - Hold Victoza and Glipizide - Continue Lantus 10 u HS - BSG ACHS w/ sliding insulin scale - Check hA1C 7.3 Alcohol use: - Patient states he drank alcohol heavily until a couple of months ago- now he drinks a few light beers a night - Elevated lipase now resolved - No signs of withdrawal GI Prophylaxis: Maalox PRN, IV Zofran PRN, Colace and/or Milk of Mag PRN DVT prophylaxis: Heparin 5000 units SQ q12 hrs Code Status: LEVEL I, FULL Total Time Spent: Greater than 30 minutes This includes examination of the patient, discharge planning, medication reconciliation, and communication with other providers. Discharge Instructions Please refer to the electronic Patient Visit Report (Discharge Instructions) for additional information.
[2016-08-17 14:52] VITALS: BP 112/70; PULSE 97; TEMP 37.1; O2SAT 99
[2016-08-17] MEDS ORDERED: RIVAROXABAN TAB 15 MG TAB PO ONE (15:15)
[2016-08-17] MEDS ORDERED: XRL15 PO (15:18)
[2016-08-17] MEDS ORDERED: INSDGIPEN SC (15:32)
[2016-08-17] MEDS ORDERED: LIRA18IN SC (15:32)
--- NOTE | 2016-08-17 18:45 | ECHOCARDIOGRAM REPORT ---
*NOTICE TO RECEIVING REPUBLICAN AGENCY This information is strictly Confidential and protected under [place] law. [place] law prohibits you from making any further disclosure of this information unless further disclosure is expressly permitted by the written consent of the person to whom it pertains or is authorized by law. A general authorization for the release of medical or other information is not sufficient for this purpose. Hospital accepts no responsibility if the information is made available to any other person, INCLUDING THE PATIENT. Interpretation Summary * Name: JOSELITO BRITT Study Date: 08/17/2016 08:41 AM BP: 121/74 mmHg * Patient Location: C.2T\S\S242\S\1 HR: 111 * : 1945 (M/d/yyyy) Gender: Male Height: 70 in * Age: 70 yrs Ethnicity: [place] Weight: 207 lb * Ordering Physician: Julianna Arellano * Referring Physician: Self, Referred * Performed By: Rosie Estrada RCS * * Reason For Study: CEREBRAL ISCHEMIA / EMBOLUS * BSA: 2.1 m2 * -- Conclusions -- * 1. Normal left ventricular size and systolic function. Estimated EF 55-60%. No definite regional wall motion abnormalities. Mild to moderate concentric left ventricular hypertrophy. * 2. The left atrium is moderately dilated. * 3. No significant valvular abnormalities visualized. * 4. Normal estimated right ventricular systolic pressure, assuming a right atrial pressure of 3 mmHg. * 5. No prior study available for comparison. Procedure Details * A complete two-dimensional transthoracic echocardiogram was performed (2D, M-mode, Doppler and color flow Doppler). * A saline contrast injection was performed to assess for cardiac shunting. * The injection was performed through an intravenous line in the left arm. * The attending nurse who injected the saline contrast was CONNIE HERNANDEZ, RN. * A total of 20 cc of agitated saline was given. Left Ventricle * Normal left ventricular size and systolic function. Estimated EF 55-60%. No definite regional wall motion abnormalities. Mild to moderate concentric left ventricular hypertrophy. Right Ventricle * The right ventricle is normal in size and function. Atria * The left atrium is moderately dilated. * Right atrial size is normal. * No obvious ASD. Inter atrial septum not well visualized. Suboptimal image quality during agitated saline injection, but no right to left inter atrial shunt noted. Mitral Valve * The mitral valve is grossly normal. * There is no mitral valve stenosis. * There is trace mitral regurgitation. Tricuspid Valve * The tricuspid valve is not well visualized, but is grossly normal. * There is no tricuspid stenosis. * There is mild tricuspid regurgitation. Aortic Valve * The aortic valve is trileaflet. * No hemodynamically significant valvular aortic stenosis. * No aortic regurgitation is present. Pulmonic Valve * The pulmonary valve is inadequately visualized, but the Doppler data is adequate for interpretation. * There is no pulmonic valvular stenosis. * There is no significant pulmonary regurgitation. Great Vessels * The aortic root is normal size. * Aortic arch of normal dimension. Pericardium/Pleural * There is no pericardial effusion. Great Vessels * IVC not well visualized. MMode 2D Measurements and Calculations IVSd 1.4 cm IVSs 1.9 cm LVIDd 5.0 cm LVIDs 3.6 cm LVPWd 1.3 cm LVPWs 1.8 cm IVS/LVPW 1.1 FS 27.2 % EDV(Teich) 115.7 ml ESV(Teich) 54.7 ml EF(Teich) 52.7 % EDV(cubed) 121.5 ml ESV(cubed) 47.0 ml EF(cubed) 61.3 % % IVS thick 40.4 % % LVPW thick 45.5 % LV mass(C)d 264.8 grams LV mass(C)dI 125.0 grams/m\S\2 LV mass(C)s 297.2 grams LV mass(C)sI 140.3 grams/m\S\2 SV(Teich) 60.9 ml SI(Teich) 28.8 ml/m\S\2 SV(cubed) 74.5 ml SI(cubed) 35.2 ml/m\S\2 Ao root diam 3.6 cm Ao root area 10.0 cm\S\2 ACS 2.0 cm LA dimension 4.6 cm asc Aorta Diam 2.9 cm LA/Ao 1.3 LVOT diam 2.0 cm LVOT area 3.1 cm\S\2 Doppler Measurements and Calculations MV E max jose 94.4 cm/sec MV P1/2t max jose 90.6 cm/sec MV P1/2t 27.8 msec MVA(P1/2t) 7.9 cm\S\2 MV dec slope 953.4 cm/sec\S\2 MV dec time 0.20 sec Ao V2 max 119.8 cm/sec Ao max PG 5.7 mmHg Ao max PG (full) 4.1 mmHg NATIVIDAD(V,A) 1.7 cm\S\2 NATIVIDAD(V,D) 1.7 cm\S\2 LV V1 max PG 1.6 mmHg LV V1 max 64.2 cm/sec TV E max jose 82.3 cm/sec PA V2 max 101.2 cm/sec PA max PG 4.1 mmHg TR max jose 260.7 cm/sec
== END 2016-08-17 15:50 | disposition home or self-care (01) | DRG 69 ==
LOC: EDBD 13:12 → C.ED 13:13 → C.2T 16:21 → CANRESERV 17:01 → ENRESERV 17:01
PROVIDERS: ADMIT Internal Medicine; ATTEND Hospitalist
DX: G45.9 Transient cerebral ischemic attack, unspecified (principal); N17.9 Acute kidney failure, unspecified; R29.810 Facial weakness; R47.81 Slurred speech; R41.82 Altered mental status, unspecified; T63.441A Toxic effect of venom of bees, accidental (unintentional), initial encounter; B02.9 Zoster without complications; I48.91 Unspecified atrial fibrillation; I12.9 Hypertensive chronic kidney disease with stage 1 through stage 4 chronic kidney disease, or unspecified chronic kidney disease; E11.22 Type 2 diabetes mellitus with diabetic chronic kidney disease; N18.9 Chronic kidney disease, unspecified; E78.5 Hyperlipidemia, unspecified; Z72.89 Other problems related to lifestyle; Z87.891 Personal history of nicotine dependence; Z79.84 Long term (current) use of oral hypoglycemic drugs; Z79.891 Long term (current) use of opiate analgesic; Z79.899 Other long term (current) drug therapy

== ENCOUNTER → 2017-03-06 | Outpatient (CLI) | payer OTHER ==
[~2017-03-06] MED LIST changes: +EPP3/2 IM; +FENO145T26 PO; +GLIP-199 PO; +HYDR-5688 PO; +LIRA18IN SC; +LOSA50TA6 PO; +MAGN400T6 PO; +METO25TA3 PO; +PRAV20TA PO; -SODIUM CHLORIDE 0.9% 1000ML 1,000 ML IV SCH; +XRL15 PO
== END | disposition home or self-care (01) ==
LOC: C.PATHSPEC 17:30
PROVIDERS: ATTEND Urology
DX: R31.29 Other microscopic hematuria (principal)

== ENCOUNTER → 2017-03-12 | Outpatient (CLI) | payer OTHER ==
[~2017-03-12] MED LIST changes: +CHOL1000 PO; +FENO48TA9 PO; +INSDGIPEN SC; +LIRA18IN SQ; +XRL10 PO
--- NOTE | 2017-03-12 10:00 | DIAGNOSTIC IMAGING REPORT ---
ABDOMEN AND PELVIS CT WITHOUT CONTRAST CT DOSE: 1025.73 mGycm HISTORY: R31.29 Hematuria, microscopic High creatinine level. No contrast p TECHNIQUE: Multiaxial CT images of the abdomen and pelvis were performed without contrast. A dose lowering technique was utilized adhering to the principles of ALARA. COMPARISON STUDY: None. FINDINGS: A few linear scarlike densities within the lung bases. Old right rib fractures. Coronary artery calcifications. The unenhanced liver, spleen, adrenal glands, and pancreas are unremarkable. A few small gallstones. No renal or ureteral calculi. No hydronephrosis. The bladder is decompressed and not well evaluated. No definite bladder wall thickening. No retroperitoneal lymphadenopathy. Moderate calcified plaque within the normal caliber abdominal aorta. Mild to moderate bilateral perinephric edema which is symmetric. Mild bilateral cortical renal scarring. Suboptimal evaluation for bowel pathology due to the lack of intravenous and oral contrast. However, there is no definite bowel wall thickening or obstruction. Normal appendix. A few scattered colonic diverticula. IMPRESSION: 1. No renal or ureteral stones. No hydronephrosis. 2. Mild/moderate symmetric bilateral perinephric edema which is likely chronic. 3. The bladder is decompressed and not well evaluated. No definite bladder wall thickening. Electronically signed by: Epifanio Jones M.D. 03/12/2017 9:58 AM Dictated Date/Time: 03/12/2017 9:49 AM
== END | disposition home or self-care (01) ==
LOC: C.CTS 07:45
PROVIDERS: ATTEND Urology
DX: R31.29 Other microscopic hematuria (principal)

== ENCOUNTER → 2017-03-21 | Outpatient (CLI) | payer OTHER ==
[~2017-03-21] MED LIST changes: -FENO145T26 PO; -HYDR-5688 PO; -LIRA18IN SC; +OPTIRAY 320 IV PRN; -XRL15 PO
--- NOTE | 2017-03-21 14:33 | DIAGNOSTIC IMAGING REPORT ---
CT OF THE CHEST WITH IV CONTRAST CLINICAL HISTORY: Pulmonary nodule COMPARISON STUDY: Chest x-ray dated 03/12/2017 TECHNIQUE: Following the IV administration of 93 mL of Optiray-320, CT of the thorax was performed from the thoracic inlet to the lung bases. Images are reviewed in the axial, sagittal, and coronal planes. IV contrast was administered without complication. A dose lowering technique was utilized adhering to the principles of ALARA. CT DOSE: 595.52 mGycm FINDINGS: Thyroid: Imaged portions of the thyroid gland are normal in appearance. Thoracic aorta: The thoracic aorta is normal in course and caliber, noting standard 3-vessel arch anatomy. No aneurysm or dissection is seen. Pulmonary vasculature: The pulmonary trunk is normal in caliber. There are no central filling defects identified to suggest pulmonary embolus. Note that this examination was not protocoled for the evaluation of pulmonary emboli. HEART: There are coronary artery calcifications present. Lungs and pleural spaces: There is right lower lobe subpleural atelectatic change. There is minor right middle lobe atelectasis/scarring. There is no focal pulmonary consolidation. No suspicious pulmonary masses are visualized. CT scanning fails to confirm the presence of a substernal pulmonary nodule. The chest x-ray finding is felt to be secondary to the right middle lobe atelectasis/scarring. Mediastinum: There is a borderline enlarged 10 mm subcarinal lymph node. Kelly: There is no evidence of pathologic hilar adenopathy given the limitations of a noncontrast study Axilla: There is no evidence of pathologic adenopathy Upper abdomen: Cholelithiasis Skeletal structures: There are multiple old right-sided rib deformities. IMPRESSION: 1. No suspicious pulmonary masses identified 2. Borderline enlarged 10 mm subcarinal lymph node 3. Cholelithiasis Electronically signed by: Benjamin Poole M.D. 03/21/2017 2:31 PM Dictated Date/Time: 03/21/2017 2:25 PM
== END | disposition home or self-care (01) ==
LOC: C.CTS 13:42
PROVIDERS: ATTEND Family Medicine
DX: R91.8 Other nonspecific abnormal finding of lung field (principal); K80.20 Calculus of gallbladder without cholecystitis without obstruction

== ENCOUNTER → 2017-03-25 | Day surgery (SDC) | payer OTHER ==
[2017-03-12 08:22] VITALS: BMI 29.0
--- NOTE | 2017-03-12 08:54 | PAT Medication Instructions ---
Service Date Mar 12, 2017. Current Home Medication List Cholecalciferol (Vitamin D3), 1 TAB PO QAM Epinephrine (Epipen), 0.3 MG IM UD PRN for BEESTING Fenofibrate (Tricor), 48 MG PO HS Glipizide (Glipizide Er), 10 MG PO QAM Insulin Glargine (Lantus Solostar), 10 SC QPM Liraglutide (Victoza), 1.8 MG SQ QAM Losartan Potassium (Cozaar), 50 MG PO QAM Magnesium Oxide (Mag-Ox), 400 MG PO QAM Metoprolol Succ (Toprol Xl) (Toprol-Xl), 12.5 MG PO QAM Pravastatin (Pravachol ), 40 MG PO QPM Rivaroxaban (Xarelto), 15 MG PO QPM Medication Instructions For Your Scheduled Surgery -Continue as directed: Epinephrine (Epipen), 0.3 MG IM UD PRN for BEESTING -Contact your prescriber for instructions for: Rivaroxaban (Xarelto), 15 MG PO QPM (per surgeon hold for three days prior to surgery) - Hold the following medications 24 hours prior to surgery: Fenofibrate (Tricor), 48 MG PO HS--DO NOT TAKE THE NIGHT BEFORE SURGERY - Hold the following medications the morning of surgery: Liraglutide (Victoza), 1.8 MG SQ QAM Losartan Potassium (Cozaar), 50 MG PO QAM Magnesium Oxide (Mag-Ox), 400 MG PO QAM Glipizide (Glipizide Er), 10 MG PO QAM Cholecalciferol (Vitamin D3), 1 TAB PO QAM - Take the following medications the morning of surgery with a sip of water: Metoprolol Succ (Toprol Xl) (Toprol-Xl), 12.5 MG PO QAM - Take the following medications as scheduled the night before surgery: Pravastatin (Pravachol ), 40 MG PO QPM Insulin Glargine (Lantus Solostar), 10 SC QPM If you have any questions please call us at [phone] or [phone] or [phone]
--- NOTE | 2017-03-12 09:42 | DIAGNOSTIC IMAGING REPORT ---
CHEST 2 VIEWS ROUTINE CLINICAL HISTORY: PAT preoperative evaluation COMPARISON STUDY: No previous studies for comparison. FINDINGS: Possible substernal nodular density in lateral projection. Old right rib fractures with probable old pleural reactive change right base. No acute infiltrate. IMPRESSION: No acute infiltrate. Possible substernal nodule based on lateral projection. CT chest is suggested. The above report was generated using voice recognition software. It may contain grammatical, syntax or spelling errors. Electronically signed by: Adolph Hernandez M.D. 03/12/2017 9:41 AM Dictated Date/Time: 03/12/2017 9:40 AM
[2017-03-12 10:24] LABS: BASO % 0.7 %; BASO ABS # 0.03 K/uL (0-0.2); EOS % 3.4 %; EOS ABS # 0.15 K/uL (0-0.5); HEMATOCRIT 36.9 % (42-52); HEMOGLOBIN 12.9 g/dL (14.0-18.0); IG# 0.01 K/uL (0.00-0.02); LYMPH % 24.2 %; LYMPH ABS # 1.07 K/uL (1.2-3.4); MEAN CORPUSCULAR HEMOGLOBIN 31.5 pg (25-34); NEUT % 62.5 %; NEUT ABS # 2.76 K/uL (1.4-6.5); PLATELET COUNT 135 K/uL (130-400); RED CELL DISTRIBUTION WIDTH CV 12.8 % (11.5-14.5); RED CELL DISTRIBUTION WIDTH SD 41.7 fL (36.4-46.3); WHITE BLOOD COUNT 4.42 K/uL (4.8-10.8)
[2017-03-12 11:31] LABS: CALCIUM 9.7 mg/dl (8.5-10.1); CREATININE 1.5 mg/dl (0.60-1.40); POTASSIUM 4.3 mmol/L (3.5-5.1)
[~2017-03-25] VITALS: Ht 177.8 cm; Wt 93.8 kg
[~2017-03-25] MED LIST changes: +ACETAMINOPHEN 325 MG TAB PO PRN; +ATROPINE SULFATE 0.1 MG/ML 5ML SYR IV PRN; +BELLADONNA/OPIUM SUPP 60 MG SUPP PR ONE; +CIPROFLOXACIN 200MG / D5W IV SCH; +CONRAY 30% 150ML BOTTLE ONE; +DEXAMETHASONE SOD INJ 4 MG/ML VIAL ONE; +EpHEDrine SULFATE INJ 50 MG/ML AMP IV PRN; +FENTANYL CITRATE INJ 50 MCG/1 ML 2 ML VIAL IV PRN; +FENTANYL CITRATE INJ 50 MCG/1 ML 2 ML VIAL ONE; +FLUMAZENIL 0.1 MG/1 ML 10 ML VIAL IV PRN; +HYDROCODONE/ACETAMOPHEN 5/325MG TAB PO PRN; +HYDROmorphone INJ 2 MG/ML SYR/VIAL IV PRN; +LABETALOL HCL IV 5 MG/ML 20ML IV PRN; +LACTATED RINGER'S 1000ML 1,000 ML IV SCH; +LIDOCAINE HCL 2% 2 ML VIAL (20MG/ML) ONE; +MEPERIDINE HCL 25 MG/ML CARP IV PRN; +MIDAZOLAM HCL 1 MG/ML 2ML VIAL ONE; +NALOXONE HCL 0.4 MG/1 ML VIAL/CARP IV PRN; +ONDANSETRON INJ 2 MG/ML 2 ML VIAL IV PRN; +ONDANSETRON INJ 2 MG/ML 2 ML VIAL ONE; -OPTIRAY 320 IV PRN; +PHENYLEPHRINE 100MCG/ML 5ML SYR IV PRN; +PHENYLEPHRINE 100MCG/ML 5ML SYR ONE; +PROPOFOL IV EMULSION 10 MG/ML 20 ML VIAL IV ONE; +SODIUM CHLORIDE 0.9% 1000ML 1,000 ML IV SCH
[2017-03-25 07:25] VITALS: BP 134/86; PULSE 97; TEMP 36.5; O2SAT 99; Ht 177.8 cm; Wt 93.8 kg
--- NOTE | 2017-03-25 08:19 | History & Physical Bridge Note ---
H&P Re-Evaluation Bridge Note: I have examined the patient, reviewed the History & Physical and in the interval since the performance of the History & Physical I have noted the following changes of clinical significance: No changes noted Pt has not held his xarelto - in turn, if there is a large tumor (low suspicion) , I will likely not be able to resect it today.
--- NOTE | 2017-03-25 09:02 | [facility] Post Operative Brief Note ---
Immediate Operative Summary Operative Date Mar 25, 2017. Pre-Operative Diagnosis Hematuria Post-Operative Diagnosis Hematuria Procedure(s) Performed Cystoscopy, Bilateral Retrograde Pyelogram Surgeon Dr. Latoya Null Six Sigma Black Belt Engineer Surgeon(s) none Estimated Blood Loss 0mL Findings Consistent with Post-Op Diagnosis no bladder tumors, no clear upper tract filling defects Specimens none per surgeon Drains None Anesthesia Type General Complication(s) none Disposition Accompanied Pt To Recover: no Disposition: Recovery Room / PACU
--- NOTE | 2017-03-25 09:08 | [facility] Operative Report ---
Operative Report Operative Date Mar 25, 2017. Pre-Operative Diagnosis Hematuria Post-Operative Diagnosis Hematuria Procedure(s) Performed Cystoscopy, Bilateral Retrograde Pyelogram Surgeon Dr. Latoya Null Ribbon Lapper Tender Surgeon(s) none Estimated Blood Loss 0mL Findings As per dictation Specimens none per surgeon Anesthesia Gen. Complication(s) None Disposition Recovery Room / PACU Indications Hematuria; abnormal FISH study Description of Procedure The patient was identified in the preoperative holding area, appropriate informed consent reviewed and completed and was transported to the operating suite. [facility] He was sterilely prepped and draped in standard fashion. I begin the case by passing a 22 Slovenian cystoscope with 30 lens. Inspection of the urethra revealed no abnormalities. Inspection of the prostate revealed moderate obstruction. Full inspection of the bladder was conducted utilizing both a 30 and 70 lens. Tumors were appreciated no erythematous areas and no general mucosal abnormalities were seen. Right retrograde pyelogram: Following my full inspection of the bladder, I turned my attention to the right ureteral orifice. I cannulated it with a cone-tip catheter. A careful retrograde pyelogram was performed. There were no filling defects appreciated. There was a smooth contour to the full length of the ureter. The renal pelvis was nondilated and there is no abnormality appreciated any of the calyces. Left retrograde pyelogram: After draining my attention to the left ureteral orifice, it was cannulated with a Cone-tip catheter and a retrograde pyelogram performed. There were no filling defects appreciated. The wall appeared to be smooth without significant dilation. Inspection of the kidney revealed a normal caliber renal pelvis and sharp calyces without filling defects. On fluoroscopic images were saved I observed prompt drainage from both kidneys, and concluded the case. The patient was taken to the PACU in stable condition. I attest to the content of the Intraoperative Record and any orders documented therein. Any exceptions are noted below.
--- NOTE | 2017-03-25 09:10 | Discharge Instructions ---
Discharge Instructions Date of Service Mar 25, 2017. Admission Reason for Admission: Microscopic Hematuria Discharge Discharge Diagnosis / Problem: microscopic hematuria Discharge Goals Goal(s): Decrease discomfort, Improve function, Increase independence, Improve disease control Activity Recommendations Activity Limitations: resume your previous activity Lifting Limitations: none Exercise/Sports Limitations: none May Resume Sexual Activity: when tolerated Shower/Bathe: no limitations Driving or Machine Use: resume 1 day after discharge . Instructions / Follow-Up Instructions / Follow-Up Please keep you previously scheduled follow up appointments. Current Hospital Diet Patient's current hospital diet: Discharge Diet Recommended Diet: Regular Diet Procedures Procedures Performed: Cystoscopy, Bilateral Retrograde Pyelogram Pending Studies Studies pending at discharge: no Medical Emergencies . Who to Call and When: Medical Emergencies: If at any time you feel your situation is an emergency, please call 911 immediately. . Non-Emergent Contact Non-Emergency issues call your: Urologist Call Non-Emergent contact if: you have a fever, temperature is above 101.5, your pain is not controlled, your pain is worsening . . "Provider Documentation" section prepared by Adi Clayton. . VTE Core Measure Inpt VTE Proph given/why not?: Other Anticoagulation
--- NOTE | 2017-03-25 09:33 | DIAGNOSTIC IMAGING REPORT ---
RETROGRADE INCLUDES KUB HISTORY: BILATERAL RETROGRADES FLUOROSCOPY TIME: 33 seconds. FINDINGS: 6 fluoroscopic spot images were submitted for review. Initial images demonstrate retrograde opacification of the bilateral ureters. No suspicious filling defects identified. No hydronephrosis. IMPRESSION: Fluoroscopy provided for bilateral retrograde pyelograms. No suspicious filling defects identified within the bilateral renal collecting systems or opacified ureters.. Electronically signed by: Epifanio Jones M.D. 03/25/2017 9:31 AM Dictated Date/Time: 03/25/2017 9:30 AM
--- NOTE | 2017-03-25 09:42 | Anesthesiology Progress Note ---
Anesthesia Post Op Note Date & Time Mar 25, 2017 at 09:42 Vital Signs Pain Intensity: 1 Vital Signs Past 12 Hours Date Time Temp Pulse Resp B/P (MAP) Pulse Ox O2 Delivery O2 Flow Rate FiO2 03/25/17 09:41 36.4 133/90 03/25/17 09:40 101 16 03/25/17 09:40 92 16 100 03/25/17 09:36 130/91 03/25/17 09:35 98 17 99 03/25/17 09:35 99 17 03/25/17 09:31 127/74 03/25/17 09:30 91 17 100 03/25/17 09:30 101 17 03/25/17 09:26 137/85 03/25/17 09:25 74 15 100 03/25/17 09:25 76 15 03/25/17 09:21 142/85 03/25/17 09:20 91 19 03/25/17 09:20 106 19 100 03/25/17 09:17 122/87 03/25/17 09:15 102 15 03/25/17 09:15 91 15 100 03/25/17 09:11 137/99 03/25/17 09:10 36 105 16 137/99 100 Oxymask 7 03/25/17 07:25 36.5 97 20 134/86 (102) 99 Room Air Notes Mental Status: alert / awake / arousable, participated in evaluation Pt Amnestic to Procedure: Yes Nausea / Vomiting: adequately controlled Pain: adequately controlled Airway Patency, RR, SpO2: stable & adequate BP & HR: stable & adequate Hydration State: stable & adequate Anesthetic Complications: no major complications apparent The patient is doing well. He is stable and his vitals are at his baseline.
[2017-03-25 09:50] VITALS: BP 118/73; PULSE 100; TEMP 36.5; O2SAT 97
[2017-03-25 10:20] VITALS: BP 141/89; PULSE 89; TEMP 36.5; O2SAT 97
[2017-03-25 10:40] VITALS: BP 138/88; PULSE 98; TEMP 36.5; O2SAT 97
== END | disposition home or self-care (01) ==
LOC: C.ACU 06:53
PROVIDERS: ATTEND Urology
DX: R31.9 Hematuria, unspecified (principal); R31.29 Other microscopic hematuria; I25.2 Old myocardial infarction; I10 Essential (primary) hypertension; Z86.73 Personal history of transient ischemic attack (TIA), and cerebral infarction without residual deficits; E11.22 Type 2 diabetes mellitus with diabetic chronic kidney disease; N18.3 Chronic kidney disease, stage 3 (moderate); E78.00 Pure hypercholesterolemia, unspecified; Z79.899 Other long term (current) drug therapy; Z79.4 Long term (current) use of insulin; Z79.01 Long term (current) use of anticoagulants; Z83.3 Family history of diabetes mellitus; Z82.49 Family history of ischemic heart disease and other diseases of the circulatory system; Z80.3 Family history of malignant neoplasm of breast; Z80.8 Family history of malignant neoplasm of other organs or systems; Z98.890 Other specified postprocedural states

== ENCOUNTER 2021-04-26 15:03 | Observation (INO) ==
--- NOTE | 2021-04-26 16:05 | XRay Report ---
XR chest 1V portable HISTORY: 75 years-old Male weakness acute weakness COMPARISON: Chest CT 03/21/2017, chest radiographs 03/12/2017 TECHNIQUE: Portable AP view of the chest FINDINGS: Cardiac silhouette is mildly enlarged. Loop recorder device. Chronic blunting of the costophrenic ang les with mild bibasilar atelectasis/scarring. No pneumothorax, large pleural effusion, overt pulmonar y edema or lobar airspace consolidation. Healed chronic right-sided rib fractures with degenerative c hanges of the shoulders and spine. IMPRESSION: No acute process. ACT 112: Negative or not required by law. The above report was generated using voice recognition software. It may contain grammatical, syntax o r spelling errors. Electronically signed by: Josef Manriquez M.D. 04/26/2021 4:04 PM
--- NOTE | 2021-04-26 18:12 | Emergency Department Note ---
Impression & Plan Near syncope, Type 2 diabetes mellitus, Hypertension, Weakness, Splenic infarct, Elevated troponin I level ED Provider Note Provider: Jono Gibson MD DATE OF SERVICE: 04/26/2021 CHIEF COMPLAINT: Dizzy, near syncope, high blood sugar, flank pain HISTORY OF PRESENT ILLNESS: Patient is a 75-year-old gentleman with a past medical history of hypertension, type 2 diabetes, and permanent atrial fibrillation on Xarelto and metoprolol presenting here today with daughter reporting multiple episodes of significant dizziness today. Patient states in the past has had some brief episodes of very transient few seconds dizziness. Fever over the weekend and intermittently in the past. 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 Evidently he reports he had a brief cardiac pause at that time but is deferred any pacemaker placement to this point. States the last 3 days he is not quite felt himself and has been a little bit more fatigued and "off ". Does report last several days he has had a little bit of left greater than right flank pain although he states this is most ly improved. Little bit of tenderness in the left flank and side of his abdomen still reported. States he is urinating and having normal bowel movements. Denies trauma or falls recently. Patient states episode primarily started after lunch around noon. Patient states he was sitting and then felt nauseous and like he is going to pass out had some palpitations. Patient states this lasted maybe a minute. Then he got up and went to check his blood sugar and in the process of this had 2-3 more episodes of brief similar episodes where he felt like he is going to faint and went to his knees but did not fall. States his blood sugar was in the 300s at that time. Patient states it did seem like a was having some difficulty speaking and family report perhaps some slurred speech at that time. These episodes occurred for approximately 5-6 episodes between noon today and around 1:30 PM. Patient states was had transient episodes of slight dizziness in the past nothing like the more severe episodes today. Patient states compliance with all medications including anticoagulants. Little bit of mild chest headache is reported currently with some slight dizziness but patient states he does not feel like he is nicely going to pass out at this point. States he is able to speak okay at this point and able to move everything and does not feel like he is having numbness or weakness anywhere at this time. REVIEW OF SYSTEMS: A total of 10 review of systems was obtained and negative except as stated above in the HPI. PAST MEDICAL HISTORY: As noted above MEDICATIONS: Reviewed home medications include Xarelto SOCIAL HISTORY: Lives at home with PHYSICAL EXAM: GENERAL: alert and oriented in no acute distress on stretcher Head: normocephalic and atraumatic EYES: No injection, discharge or icterus. PERRL, EOMI. NECK: Trachea midline. Supple. ENT: Mucous membranes pink and moist. Pharynx without erythema or exudate. LUNGS: Airway patent. No retractions. Breath sounds clear with good air entry bilaterally. HEART: Regular rate and rhythm. No chest wall tenderness ABDOMEN: Soft nonperitoneal without guarding. Perhaps some very slight left lateral side pain without overlying skin changes in this area. BACK: No bilateral flank tenderness. SKIN: Acyanotic, warm, dry, without rashes EXTREMITIES: Without swelling, tenderness or deformity NEUROLOGICAL: No focal deficits. No aphasia. No facial droop or slurred speech. Tongue midline. Normal strength and tone in the extremities. Sensation to gross touch normal. Ambulatory. EK bpm atrial fibrillation with occasional PVC. No acute ST segment elevation noted with nonspecific T wave changes with a QTC of 382. Today with PVC that appears to be more atrial fibrillation rather than atrial flutter from August 2020 CONTINUOUS CARDIAC MONITORING: was ordered and showed a heart rate of bpm in atrial fibrillation Patient's laboratory studies and imaging reviewed. Differential includes Vasovagal event, dehydration, infection, hypoglycemia, electrolyte abnormalities, cardiac sources, intracerebral event, pulmonary embolism, seizure, toxicologic, neurologic, as well as other pathologies. IMPRESSION/MEDICAL DECISION MAKING: Minimal left flank tenderness. No bladder or bowel issues reported. No nausea at this time or history of vomiting. Will complete a COVID and basic labs including lipase and urine sample. Will complete a CT of the abdomen pelvis lower suspicion for significant acute intra-abdominal pathology. Patient with resolution of any slurred speech at this point without signs of focal deficit such as slurred speech or focal numbness or weakness do not feel he is a candidate for TPA and his Xarelto was also contraindication. Lower suspicion for acute CVA at this time given his presenting history as well. Question given his history of cardiac pause and prior monitor monitor if he may have exacerbation of frequent episodes of this today given his cardiac history. Unable to prove if events earlier may be related given lack of telemetry at that time. Chest x-ray here is unremarkable. Covid test completed. Thyroid magnesium sent as well to look for any possible abnormality here that may be prompting any worsening of his symptoms. CT of the head completed look for any intracranial bleeding. Per radiology report no acute intracranial abnormality was noted. Unlikely to be PE given his anticoagulation. Negative Covid testing today. Borderline anemia but no leukocytosis noted. No severe electrolyte abnormalities noted. Mild hyperglycemia just over 200; known diabetic. No evidence of significant liver dysfunction and no evidence of pancreatitis based on labs. EKG without STEMI and the patient denies any active chest pain at this time. Troponin is returned with a slight elevation. Previous from 5 years ago undetectable. Again question possible underlying ca rdiac arrhythmia but lower suspicion this represents ACS. Patient is anticoagulated with Xarelto. CT of the abdomen pelvis with concerns for area of splenic infarct. Interesting this occurred while on anticoagulation. Given this cannot positively exclude possible small embolic CVA but again due to more strongly entertain a possible cardiac arrhythmia causing his symptoms. Discussed with the patient the findings recommendation for further care here at the hospital and cardiac monitoring. He was in agreement. The hospitalist was contacted. DIAGNOSIS: Near syncope, dizziness, left leg pain, elevated troponin, splenic infarct DISPOSITION: Hospitalist will evaluate Patient was agreeable with this plan. 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 Beliefs That Will Affect Care: None Current Living Situation: Spouse Feels Safe at Home: Yes Assistive Devices: Denture - Upper and Glasses Allergies Allergies Allergy/AdvReac Type Severity Reaction Status Date / Time bee venom protein (honey bee) Allergy Severe SWELLING, Verified 04/26/21 19:25 HIVES Home Meds Home Medications Medication Instructions Recorded Confirmed cholecalciferol (vitamin D3) 25 1,000 units PO DAILY 10/30/18 04/26/21 mcg (1,000 unit) capsule fenofibrate 150 mg capsule 150 mg PO QPM cap 10/30/18 04/26/21 glipizide 10 mg tablet 10 mg PO QAM tab 10/30/18 04/26/21 insulin glargine 100 unit/mL 20 unit SUBCUT QPM ml 10/30/18 04/26/21 subcutaneous solution pravastatin 40 mg tablet 40 mg PO QPM #90 tab 10/30/18 04/26/21 rivaroxaban 15 mg tablet 15 mg PO QPM #90 tab 10/30/18 04/26/21 diphenhydramine HCl 25 mg tablet 50 mg PO DAILY PRN 08/14/20 04/26/21 (Benadryl Allergy) metoprolol tartrate 25 mg tablet 12.5 mg PO QAM 04/26/21 04/26/21 Previous Rx's Medication Instructions Recorded epinephrine 0.3 mg/0.3 mL 0.3 mg IM Q15M PRN #2 ea 08/14/20 injection, auto-injector (EpiPen 2-Jair) Results & Data (ED) Vital Signs Vital Signs - 24 hr 04/26/21 15:17 04/26/21 18:00 04/26/21 18:10 Temperature 36.7 C Temperature Source Oral Pulse Rate 91 H 94 H 88 Pulse Rate from SpO2 Sensor Respiratory Rate 16 23 22 Blood Pressure 159/92 H Blood Pressure Mean 114 Pulse Oximetry 98 99 99 Oxygen Delivery Method Room Air Sepsis Recent Fever Within 48 Hours No Sepsis New/Unexplained Change in Mental Status No Sepsis Action Taken by Nursing No Action Required 04/26/21 18:20 04/26/21 18:30 04/26/21 18:58 Temperature Temperature Source Pulse Rate 88 89 99 H Pulse Rate from SpO2 Sensor Respiratory Rate 22 22 21 Blood Pressure 159/93 H Blood Pressure Mean 115 Pulse Oximetry 99 99 99 Oxygen Delivery Method Room Air Room Air Sepsis Recent Fever Within 48 Hours Sepsis New/Unexplained Change in Mental Status Sepsis Action Taken by Nursing 04/26/21 18:59 04/26/21 19:00 04/26/21 19:10 Temperature Temperature Source Pulse Rate 95 H 94 H 95 H Pulse Rate from SpO2 Sensor 94 H 96 H 93 H Respiratory Rate 20 20 19 Blood Pressure 159/93 H Blood Pressure Mean 115 Pulse Oximetry 99 99 98 Oxygen Delivery Method Room Air Room Air Room Air Sepsis Recent Fever Within 48 Hours Sepsis New/Unexplained Change in Mental Status Sepsis Action Taken by Nursing 04/26/21 19:20 04/26/21 19:30 04/26/21 19:40 Temperature Temperature Source Pulse Rate 89 91 H 90 Pulse Rate from SpO2 Sensor 92 H 96 H 93 H Respiratory Rate 18 15 20 Blood Pressure 150/97 H Blood Pressure Mean 114 Pulse Oximetry 98 98 98 Oxygen Delivery Method Room Air Room Air Room Air Sepsis Recent Fever Within 48 Hours Sepsis New/Unexplained Change in Mental Status Sepsis Action Taken by Nursing 04/26/21 19:45 04/26/21 19:50 04/26/21 20:00 Temperature Temperature Source Pulse Rate 92 H 90 90 Pulse Rate from SpO2 Sensor 90 93 H Respiratory Rate 18 14 18 Blood Pressure 150/97 H 168/96 H Blood Pressure Mean 114 120 Pulse Oximetry 98 98 98 Oxygen Delivery Method Room Air Room Air Room Air Sepsis Recent Fever Within 48 Hours Sepsis New/Unexplained Change in Mental Status Sepsis Action Taken by Nursing 04/26/21 20:10 Temperature Temperature Source Pulse Rate 92 H Pulse Rate from SpO2 Sensor 90 Respiratory Rate 18 Blood Pressure Blood Pressure Mean Pulse Oximetry 98 Oxygen Delivery Method Room Air Sepsis Recent Fever Within 48 Hours Sepsis New/Unexplained Change in Mental Status Sepsis Action Taken by Nursing Laboratory Data Result diagrams: 04/26/21 18:18 04/26/21 18:18 Lab Results 04/26/21 04/26/21 04/26/21 Range/Units 18:18 18:18 18:18 WBC 7.00 (4.8-10.8) K/uL RBC 4.32 L (4.7-6.1) M/uL Hgb 13.8 L (14.0-18.0) g/dL Hct 39.6 L (42-52) % MCV 91.7 (80-100) fL MCH 31.9 (25-34) pg MCHC 34.8 (32-36) g/dL RDW Std Deviation 43.7 (36.4-46.3) fL RDW Coeff of Carrol 13.0 (11.5-14.5) % Plt Count 145 (130-400) K/uL MPV 12.3 H (7.4-10.4) fL Immature Gran % (Auto) 0.0 % Neut % (Auto) 68.3 % Lymph % (Auto) 21.1 % Hunt % (Auto) 8.6 % Eos % (Auto) 1.7 % Baso % (Auto) 0.3 % Neut # (Auto) 4.78 (1.4-6.5) K/uL Lymph # (Auto) 1.48 (1.2-3.4) K/uL Hunt # (Auto) 0.60 H (0.11-0.59) K/uL Eos # (Auto) 0.12 (0-0.5) K/uL Baso # (Auto) 0.02 (0-0.2) K/uL Immature Gran # (Auto) 0.00 (0.00-0.02) K/uL Sodium 136 (136-145) mmol/L Potassium 4.1 (3.5-5.1) mmol/L Chloride 100 (98-107) mmol/L Carbon Dioxide 26 (21-32) mmol/L Anion Gap 10 (3-11) BUN 24 H (6-23) mg/dl Creatinine 1.38 (0.6-1.4) mg/dl Est Cr Clr Drug Dosing 53.4 ml/min Est GFR ( Amer) 58.4 ml/min Est GFR (Non-Af Amer) 50.4 ml/min BUN/Creatinine Ratio 17.4 (10-20) Glucose 216 H (70-99(Fasting)) mg/dl Calcium 9.9 (8.5-10.1) mg/dl Magnesium (1.7-2.4) mg/dl Total Bilirubin 0.6 (0.2-1.0) mg/dl AST 17 (13-39) U/L ALT 12 (7-52) U/L Alkaline Phosphatase 67 (34-104) U/L Troponin I 0.05 H* (0-0.04) ng/ml Total Protein 8.0 (6.0-8.3) gm/dl Albumin 4.3 (3.4-5.0) gm/dl Globulin 3.7 (2.5-4.0) gm/dl Albumin/Globulin Ratio 1.2 (0.9-2) Lipase (11-82) U/L TSH 3.514 (0.300-4.500) uIu/ml SARS-CoV-2, RNA, NAAT (NEGATIVE) 04/26/21 04/26/21 Range/Units 18:18 18:30 WBC (4.8-10.8) K/uL RBC (4.7-6.1) M/uL Hgb (14.0-18.0) g/dL Hct (42-52) % MCV (80-100) fL MCH (25-34) pg MCHC (32-36) g/dL RDW Std Deviation (36.4-46.3) fL RDW Coeff of Carrol (11.5-14.5) % Plt Count (130-400) K/uL MPV (7.4-10.4) fL Immature Gran % (Auto) % Neut % (Auto) % Lymph % (Auto) % Hunt % (Auto) % Eos % (Auto) % Baso % (Auto) % Neut # (Auto) (1.4-6.5) K/uL Lymph # (Auto) (1.2-3.4) K/uL Hunt # (Auto) (0.11-0.59) K/uL Eos # (Auto) (0-0.5) K/uL Baso # (Auto) (0-0.2) K/uL Immature Gran # (Auto) (0.00-0.02) K/uL Sodium (136-145) mmol/L Potassium (3.5-5.1) mmol/L Chloride (98-107) mmol/L Carbon Dioxide (21-32) mmol/L Anion Gap (3-11) BUN (6-23) mg/dl Creatinine (0.6-1.4) mg/dl Est Cr Clr Drug Dosing ml/min Est GFR ( Amer) ml/min Est GFR (Non-Af Amer) ml/min BUN/Creatinine Ratio (10-20) Glucose (70-99(Fasting)) mg/dl Calcium (8.5-10.1) mg/dl Magnesium 1.8 (1.7-2.4) mg/dl Total Bilirubin (0.2-1.0) mg/dl AST (13-39) U/L ALT (7-52) U/L Alkaline Phosphatase (34-104) U/L Troponin I (0-0.04) ng/ml Total Protein (6.0-8.3) gm/dl Albumin (3.4-5.0) gm/dl Globulin (2.5-4.0) gm/dl Albumin/Globulin Ratio (0.9-2) Lipase 20 (11-82) U/L TSH (0.300-4.500) uIu/ml SARS-CoV-2, RNA, NAAT NEGATIVE (NEGATIVE) Administered Medications Lactated Ringer's (Lr) 1,000 mls @ 80 mls/hr IV .[id number] [facility] Stop: 04/27/21 23:09 Last Admin: 04/26/21 23:12 Dose: 80 mls/hr Documented by: [id number] Insulin Aspart (Insulin Aspart Per Unit) 0 units SC ACHS [facility] Stop: 05/26/21 22:09 Last Admin: 04/26/21 23:16 Dose: 1 units Documented by: [id number] Cosigned by: [id number] Insulin Glargine (Insulin Glargine Solostar 100 Units/Ml 3 Ml Pen) 20 units SQ QPM [facility] Stop: 05/26/21 22:09 Last Admin: 04/26/21 23:16 Dose: 20 units Documented by: [id number] Cosigned by: [id number] Pravastatin Sodium (Pravastatin Sod 40 Mg Tab) 40 mg PO QPM [facility] Stop: 05/26/21 22:09 Last Admin: 04/26/21 23:07 Dose: 40 mg Documented by: [id number] Rivaroxaban (Rivaroxaban 15 Mg Tab) 15 mg PO QPM [facility] Stop: 05/26/21 22:09 Last Admin: 04/26/21 23:07 Dose: 15 mg Documented by: [id number] Discontinued Medications Aspirin (Aspirin 81 Mg Chew) 324 mg PO NOW [facility] Stop: 04/26/21 19:39 Last Admin: 04/26/21 19:43 Dose: 324 mg Documented by: [id number] Imaging Data Radiologist's Impression: Chest X-Ray 04/26/21 15:21 XR chest 1V portable HISTORY: 75 years-old Male weakness acute weakness COMPARISON: Chest CT 03/21/2017, chest radiographs 03/12/2017 TECHNIQUE: Portable AP view of the chest FINDINGS: Cardiac silhouette is mildly enlarged. Loop recorder device. Chronic blunting of the costophrenic angles with mild bibasilar atelectasis/scarring. No pneumothorax, large pleural effusion, overt pulmonary edema or lobar airspace consolidation. Healed chronic right-sided rib fractures with degenerative changes of the shoulders and spine. IMPRESSION: No acute process. ACT 112: Negative or not required by law. The above report was generated using voice recognition software. It may contain grammatical, syntax or spelling errors. Electronically signed by: Josef Manriquez M.D. 04/26/2021 4:04 PM Abdomen/Pelvis CT 04/26/21 18:[address] WITHOUT CONTRAST CT DOSE: 693.30 mGy.cm HISTORY: Acute left flank pain with near syncope near syncope, L flank pain/side TECHNIQUE: Multiaxial CT images of the abdomen and pelvis were performed without contrast. A dose lowering technique was utilized adhering to the principles of ALARA. COMPARISON STUDY: CT abdomen and pelvis 03/12/2017 FINDINGS: Mild cardiomegaly with extensive coronary artery calcifications. Mild bibasilar atelectasis/scarring. No pneumatosis or pneumoperitoneum. There is an ill-defined peripheral wedge-shaped hypodense focus within the peripheral mid to inferior spleen measuring 3.4 x 3.0 cm on image 176 series 3 which is new from prior. Trace periureteral splenic stranding. No discrete laceration or subcapsular hematoma. Moderately atrophic pancreas. Unremarkable adrenal glands. Cholelithiasis without CT evidence of acute cholecystitis. Unremarkable liver. Nonspecific bilateral perinephric stranding. No renal or ureteral calculi or hydronephrosis. Prostamegaly. Urinary bladder wall thickening with partial dis tention. Extensive calcified plaque the abdominal aorta. No aneurysm or adenopathy. Calcifications of the vas deferens. There is no bowel obstruction or bowel wall thickening. There is mild fecal retention. Normal appendix. No ascites or mesenteric inflammation. 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 Degenerative changes of the spine, pelvis and hips. No acute fracture identified. IMPRESSION: 1. Limited study without the use of IV contrast. 3.4 x 3.0 cm peripheral wedge- shaped hypodense focus within the posterior mid to inferior spleen with trace perisplenic inflammatory stranding is suggestive of an acute splenic infarct. 2. No renal or ureteral calculi or uropathy. 3. No bowel obstruction or bowel wall thickening. 4. Cholelithiasis. 5. Additional findings as above. ACT 112: Negative or not required by law. The above report was generated using voice recognition software. It may contain grammatical, syntax or spelling errors. Electronically signed by: Josef Manriquez M.D. 04/26/2021 7:[address] 04/26/21 18:08 CT head/brain wo con CLINICAL HISTORY: 75 years-old Male with dizzy, near syncope on xarelto. Acute dizziness with near syncopal episode TECHNIQUE: Multiple axial CT images of the head were obtained without contrast. A dose lowering technique was utilized adhering to the principles of ALARA. CT DOSE: 537.48 mGy.cm COMPARISON: Head CT 08/16/2016, brain MRI 08/16/2016 FINDINGS: No acute intracranial hemorrhage, midline shift, intracranial mass, hyd rocephalus, territorial ischemia or abnormal extra-axial collection. Mild involutional changes with chronic micro-Rasco ischemic disease. Encephalomalacia is again noted within the right occipital, left parietal and left cerebellar hemispheres. Cerebral vascular calcifications. The calvarium is intact. Mastoid air cells are clear. Mild to moderate periosteal thickening of the maxillary and ethmoid sinuses. Unremarkable soft tissues and orbits. IMPRESSION: 1. No acute intracranial abnormality. 2. Multiple chronic infarcts redemonstrated. ACT 112: Negative or not required by law. The above report was generated using voice recognition software. It may contain grammatical, syntax or spelling errors. Electronically signed by: Josef Manriquez M.D. 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
[2021-04-26 18:40] LABS: Basophils # (auto) 0.02 K/uL (0-0.2); Basophils % (auto) 0.3 %; Eosinophils # (auto) 0.12 K/uL (0-0.5); Eosinophils % (auto) 1.7 %; Hematocrit (blood only) 39.6 % (42-52); Hemoglobin 13.8 g/dL (14.0-18.0); Lymphocytes # (auto) 1.48 K/uL (1.2-3.4); Lymphocytes % (auto) 21.1 %; Mean Corpuscular Hemoglobin 31.9 pg (25-34); Mean Corpuscular Hgb Conc 34.8 g/dL (32-36); Mean Corpuscular Volume 91.7 fL (80-100); Mean Platelet Volume 12.3 fL (7.4-10.4); Monocytes % (auto) 8.6 %; Neutrophils # (auto) 4.78 K/uL (1.4-6.5); Neutrophils % (auto) 68.3 %; Platelet Count 145 K/uL (130-400); RDW Standard Deviation 43.7 fL (36.4-46.3); Red Blood Count 4.32 M/uL (4.7-6.1)
--- NOTE | 2021-04-26 18:58 | CT Scan Report ---
CT head/brain wo con CLINICAL HISTORY: 75 years-old Male with dizzy, near syncope on xarelto. Acute dizziness with near s yncopal episode TECHNIQUE: Multiple axial CT images of the head were obtained without contrast. A dose lowering tech nique was utilized adhering to the principles of ALARA. CT DOSE: 537.48 mGy.cm COMPARISON: Head CT 08/16/2016, brain MRI 08/16/2016 FINDINGS: No acute intracranial hemorrhage, midline shift, intracranial mass, hydrocephalus, territorial ischem ia or abnormal extra-axial collection. Mild involutional changes with chronic micro-Rasco ischemic di sease. Encephalomalacia is again noted within the right occipital, left parietal and left cerebellar hemispheres. Cerebral vascular calcifications. The calvarium is intact. Mastoid air cells are clear. Mild to moderate periosteal thickening of the maxillary and ethmoid sinuses. Unremarkable soft tissues and orbits. IMPRESSION: 1. No acute intracranial abnormality. 2. Multiple chronic infarcts redemonstrated. ACT 112: Negative or not required by law. The above report was generated using voice recognition software. It may contain grammatical, syntax o r spelling errors. Electronically signed by: Josef Manriquez M.D. 04/26/2021 6:57 PM
[2021-04-26 18:59] LABS: Magnesium 1.8 mg/dl (1.7-2.4)
[2021-04-26 19:05] LABS: Albumin Globulin Ratio 1.2 (0.9-2); Albumin Level 4.3 gm/dl (3.4-5.0); BUN Creatinine Ratio 17.4 (10-20); Bilirubin,Total 0.6 mg/dl (0.2-1.0); Calcium 9.9 mg/dl (8.5-10.1); Creatinine Clr Calc Pharmacy 53.4 ml/min; Est GFR (African American) 58.4 ml/min; Est GFR (Non-African American) 50.4 ml/min; Globulin 3.7 gm/dl (2.5-4.0); Potassium 4.1 mmol/L (3.5-5.1)
[2021-04-26 19:10] LABS: Troponin I 0.05 ng/ml (0-0.04)
[2021-04-26 19:16] LABS: Appearance Urine Clear (Clear); Bacteria Urine Automated Negative (Negative); Bilirubin Urine Negative (Negative); Blood Urine 1+ (Negative); Cast Urine Automated 0 /lpf (0-5); Color Urine Yellow; Epithelial Cell Urine Auto 0-5 /lpf (0-5); Glucose Urine UA 2+ (Negative); Ketones Urine Trace (Negative); Leukocyte Esterase Urine Negative (Negative); Nitrite Urine Negative (Negative); Protein Urine 2+ (Negative); RBC Urine Automated 0-4 /hpf (0-4); Specific Gravity Urine 1.017 (1.000-1.030); Urobilinogen Urine Negative (Negative)
--- NOTE | 2021-04-26 19:22 | CT Scan Report ---
ABDOMEN AND PELVIS CT WITHOUT CONTRAST CT DOSE: 693.30 mGy.cm HISTORY: Acute left flank pain with near syncope near syncope, L flank pain/side TECHNIQUE: Multiaxial CT images of the abdomen and pelvis were performed without contrast. A dose lo wering technique was utilized adhering to the principles of ALARA. COMPARISON STUDY: CT abdomen and pelvis 03/12/2017 FINDINGS: Mild cardiomegaly with extensive coronary artery calcifications. Mild bibasilar atelectasis /scarring. No pneumatosis or pneumoperitoneum. There is an ill-defined peripheral wedge-shaped hypode nse focus within the peripheral mid to inferior spleen measuring 3.4 x 3.0 cm on image 176 series 3 w hich is new from prior. Trace periureteral splenic stranding. No discrete laceration or subcapsular h ematoma. Moderately atrophic pancreas. Unremarkable adrenal glands. Cholelithiasis without CT evidenc e of acute cholecystitis. Unremarkable liver. Nonspecific bilateral perinephric stranding. No renal or ureteral calculi or hydronephrosis. Prostame sully. Urinary bladder wall thickening with partial distention. Extensive calcified plaque the abdomin al aorta. No aneurysm or adenopathy. Calcifications of the vas deferens. There is no bowel obstruction or bowel wall thickening. There is mild fecal retention. Normal appendi x. No ascites or mesenteric inflammation. Healed chronic right-sided rib fractures. Degenerative lopez ges of the spine, pelvis and hips. No acute fracture identified. IMPRESSION: 1. Limited study without the use of IV contrast. 3.4 x 3.0 cm peripheral wedge-shaped hypodense focus within the posterior mid to inferior spleen with trace perisplenic inflammatory stranding is suggest drew of an acute splenic infarct. 2. No renal or ureteral calculi or uropathy. 3. No bowel obstruction or bowel wall thickening. 4. Cholelithiasis. 5. Additional findings as above. ACT 112: Negative or not required by law. The above report was generated using voice recognition software. It may contain grammatical, syntax o r spelling errors. Electronically signed by: Josef Manriquez M.D. 04/26/2021 7:21 PM
[2021-04-26] MEDS ORDERED: ASPIRIN 81 MG CHEW PO STA (19:38)
--- NOTE | 2021-04-26 20:31 | History & Physical Report ---
Date of Service April 26, 2021 Assessment & Plan (1) Near syncope: Plan: Etiology unclear at this time. Ddx to include orthostatic, arrhythmia, pauses, ?ACS as patient with some left sided chest pain at the time -Observation to medical with telemetry -Check orthostatic VS -Trend troponin -Fall precautions (2) Splenic infarct: Plan: Incidentally discovered splenic infarct. No trauma. Pain is minimal. Patient is HD stable. ?cardioembolic? Patient is anticoagulated on Rivaroxaban and is compliant -Pain control as needed (3) Elevated troponin I level: Plan: Patient with elevated troponin of 0.05. No acute ischemic changes on EKG. He does endorse some brief left sided chest and upper abdomen discomfort as well as cramping sensation between his shoulder blades that occurred at the time of the first pre-syncopal event. -Telemetry monitoring -Trend troponin q 8 hours x 3 -Check 2D echo in AM -Consider Cardiology consult in AM pending results of troponin, echo, tele (4) Permanent atrial fibrillation: Plan: Patient with rate controlled atrial fibrillation. Anticoagulated with Rivaroxaban. Reports not missing any doses. -Continue metoprolol 12.5mg po daily -Telemetry monitoring to assess for arrhythmia, bradycardia, pauses -Continue Rivaroxaban (5) Type 2 diabetes mellitus: Plan: Chronic. Patient is on Lantus and Glipizide at home. His blood sugar is presently 216. -Hold Glipizide -Continue lantus 20u qHS -ISS. Goal blood sugar 100 - 140 while admitted -Check HgbA1C with AM labs - no prior on record (6) Hypertension: Plan: Blood pressure elevated at present 168/96 -Continue Metoprolol -Continue to monitor (7) High cholesterol: Plan: Chronic. -Continue Pravastatin 40mg po daily -Patient on Fenofibrate as outpatient. Will hold during hospital stay- non- formulary. Resume on DC Plan: F/E/N -LR at 80mL/hr x 2 liters, electroltyes WNL, AHA/CC diet as tolerated Ppx - On Rivaraxaban for AF - will continue as above Code - Full per discussion with patient Dispo - Observation to medical with telemetry History of Present Illness Chief Complaint: syncope Primary Care Provider: Yamil Husain PA-C 75yo male with history of atrial fibrillation on Rivaroxaban, HTN, HLP and DM presenting with several near-syncopal events that occurred earlier today. Patient states that he experiences episodes of dizziness intermittently for years. This afternoon he was sitting down watching TV when he became very light headed. He also had some discomfort in his upper chest, left upper abdomen and between his shoulder blades. The sensation lasted only 3-4 seconds. He got up and walked to the kitchen to check his blood sugar and had 3-4 subsequent episodes of lightheadedness. These episodes were brief in duration as well. No additional chest pain. No palpitations, SOB, nausea. Patient has had similar complaints in the past. He follows with Cardiology - last seen by Dr. Murillo on 12/15/20. He had an event monitor over the summer which revealed a 3.8 second pause. His Metoprolol was decreased to 12.5mg daily. A permanent pacer was discussed but not pursued at that time. Presently feels well. No additional complaints. No chest pain at present. Patient is active and independent at home. Denies exertional CP or dyspnea. ER Course: ASA 324mg Allergies Allergy/AdvReac Type Severity Reaction Status Date / Time bee venom protein (honey bee) Allergy Severe SWELLING, Verified 04/26/21 19:25 HIVES Home Medications Medication Instructions Recorded Confirmed Type cholecalciferol (vitamin D3) 25 1,000 units PO DAILY 10/30/18 04/26/21 History mcg (1,000 unit) capsule fenofibrate 150 mg capsule 150 mg PO QPM cap 10/30/18 04/26/21 History glipizide 10 mg tablet 10 mg PO QAM tab 10/30/18 04/26/21 History insulin glargine 100 unit/mL 20 unit SUBCUT QPM ml 10/30/18 04/26/21 History subcutaneous solution pravastatin 40 mg tablet 40 mg PO QPM #90 tab 10/30/18 04/26/21 History rivaroxaban 15 mg tablet 15 mg PO QPM #90 tab 10/30/18 04/26/21 History diphenhydramine HCl 25 mg tablet 50 mg PO DAILY PRN 08/14/20 04/26/21 History (Benadryl Allergy) epinephrine 0.3 mg/0.3 mL 0.3 mg IM Q15M PRN #2 ea 08/14/20 04/26/21 Rx injection, auto-injector (EpiPen 2-Jair) metoprolol tartrate 25 mg tablet 12.5 mg PO QAM 04/26/21 04/26/21 History 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 High cholesterol Hypertension Permanent atrial fibrillation Surgical History History of prior ablation treatment Family History Other Family history non-contributory Social History Smoking Status: Current every day smoker Tobacco Type: Cigarettes Preferred Language: Kazakh Feels Safe at Home: Yes Review of Systems Review of Systems: All systems reviewed & are unremarkable except as noted in HPI & below Physical Exam Physical Exam: General: patient resting comfortably, NAD, non-toxic in appearance, AA&O x 4 Skin: warm, dry, intact, no rashes or lesions HEENT: NC/AT, PERRL, EOMI, anicteric sclera, conjunctiva without injection, external ear normal to inspection and nontender, nares patent, moist mucus membranes, dentition intact, no oropharyngeal lesions, neck supple, trachea midline, no LAD, no thyromegaly, no JVD Heart: +S1/S2, irregularly irregular, no m/r/g Lungs: equal air entry bilaterally, no rales/rhonchi/wheezes Abd: +BS, soft, ND, mild tenderness to LUQ without rebound/guarding, no masses/organomegaly/ascites Ext: warm, 2+ pulses in UE/LE bilaterally, no clubbing/cyanosis or edema Neuro: nonfocal, patient AA&O x 4, speech intact, no facial droop, moving all extremities on command with equal strength 5/5 Results & Data Results & Data ([facility]) Vital Signs (Past 12 Hours) Vital Signs Temp Pulse Resp BP Pulse Ox 04/26/21 20:10 92 H 18 98 04/26/21 20:00 90 18 168/96 H 98 04/26/21 19:50 90 14 98 04/26/21 19:45 92 H 18 150/97 H 98 04/26/21 19:40 90 20 150/97 H 98 04/26/21 19:30 91 H 15 98 04/26/21 19:20 89 18 98 04/26/21 19:10 95 H 19 98 04/26/21 19:00 94 H 20 99 04/26/21 18:59 95 H 20 159/93 H 99 04/26/21 18:58 99 H 21 159/93 H 99 04/26/21 18:30 89 22 99 04/26/21 18:20 88 22 99 04/26/21 18:10 88 22 99 04/26/21 18:00 94 H 23 99 04/26/21 15:17 36.7 C 91 H 16 159/92 H 98 Laboratory Results Laboratory Results WBC 7.00 K/uL (4.8-10.8) 04/26/21 18:18 RBC 4.32 M/uL (4.7-6.1) L 04/26/21 18:18 Hgb 13.8 g/dL (14.0-18.0) L 04/26/21 18:18 Hct 39.6 % (42-52) L 04/26/21 18:18 MCV 91.7 fL (80-100) 04/26/21 18:18 MCH 31.9 pg (25-34) 04/26/21 18:18 MCHC 34.8 g/dL (32-36) 04/26/21 18:18 RDW Std Deviation 43.7 fL (36.4-46.3) 04/26/21 18:18 RDW Coeff of [place] 13.0 % (11.5-14.5) 04/26/21 18:18 Plt Count 145 K/uL (130-400) 04/26/21 18:18 MPV 12.3 fL (7.4-10.4) H 04/26/21 18:18 Immature Gran % (Auto) 0.0 % 04/26/21 18:18 Neut % (Auto) 68.3 % 04/26/21 18:18 Lymph % (Auto) 21.1 % 04/26/21 18:18 [place] % (Auto) 8.6 % 04/26/21 18:18 Eos % (Auto) 1.7 % 04/26/21 18:18 Baso % (Auto) 0.3 % 04/26/21 18:18 Neut # (Auto) 4.78 K/uL (1.4-6.5) 04/26/21 18:18 Lymph # (Auto) 1.48 K/uL (1.2-3.4) 04/26/21 18:18 [place] # (Auto) 0.60 K/uL (0.11-0.59) H 04/26/21 18:18 Eos # (Auto) 0.12 K/uL (0-0.5) 04/26/21 18:18 Baso # (Auto) 0.02 K/uL (0-0.2) 04/26/21 18:18 Immature Gran # (Auto) 0.00 K/uL (0.00-0.02) 04/26/21 18:18 Sodium 136 mmol/L (136-145) 04/26/21 18:18 Potassium 4.1 mmol/L (3.5-5.1) 04/26/21 18:18 Chloride 100 mmol/L (98-107) 04/26/21 18:18 Carbon Dioxide 26 mmol/L (21-32) 04/26/21 18:18 Anion Gap 10 (3-11) 04/26/21 18:18 BUN 24 mg/dl (6-23) H 04/26/21 18:18 Creatinine 1.38 mg/dl (0.6-1.4) 04/26/21 18:18 Est Cr Clr Drug Dosing 53.4 ml/min 04/26/21 18:18 Est GFR ( Amer) 58.4 ml/min 04/26/21 18:18 Est GFR (Non-Af Amer) 50.4 ml/min 04/26/21 18:18 BUN/Creatinine Ratio 17.4 (10-20) 04/26/21 18:18 Glucose 216 mg/dl (70-99(Fasting)) H 04/26/21 18:18 Calcium 9.9 mg/dl (8.5-10.1) 04/26/21 18:18 Magnesium 1.8 mg/dl (1.7-2.4) 04/26/21 18:18 Total Bilirubin 0.6 mg/dl (0.2-1.0) 04/26/21 18:18 AST 17 U/L (13-39) 04/26/21 18:18 ALT 12 U/L (7-52) 04/26/21 18:18 Alkaline Phosphatase 67 U/L (34-104) 04/26/21 18:18 Troponin I 0.05 ng/ml (0-0.04) H* 04/26/21 18:18 Total Protein 8.0 gm/dl (6.0-8.3) 04/26/21 18:18 Albumin 4.3 gm/dl (3.4-5.0) 04/26/21 18:18 Globulin 3.7 gm/dl (2.5-4.0) 04/26/21 18:18 Albumin/Globulin Ratio 1.2 (0.9-2) 04/26/21 18:18 Lipase 20 U/L (11-82) 04/26/21 18:18 TSH 3.514 uIu/ml (0.300-4.500) 04/26/21 18:18 Urine Color Yellow 04/26/21 Unknown Urine Appearance Clear (Clear) 04/26/21 Unknown Urine pH 5.0 (4.5-7.5) 04/26/21 Unknown Ur Specific [place] 1.017 (1.000-1.030) 04/26/21 Unknown Urine Protein 2+ (Negative) H 04/26/21 Unknown Urine Glucose (UA) 2+ (Negative) H 04/26/21 Unknown Urine Ketones Trace (Negative) H 04/26/21 Unknown Urine Blood 1+ (Negative) H 04/26/21 Unknown Urine Nitrite Negative (Negative) 04/26/21 Unknown Urine Bilirubin Negative (Negative) 04/26/21 Unknown Urine Urobilinogen Negative (Negative) 04/26/21 Unknown Ur Leukocyte Esterase Negative (Negative) 04/26/21 Unknown Urine WBC (Auto) 1-5 /hpf (0-5) 04/26/21 Unknown Urine RBC (Auto) 0-4 /hpf (0-4) 04/26/21 Unknown U Hyaline Cast (Auto) 0 /lpf (0-5) 04/26/21 Unknown U Epithel Cells (Auto) 0-5 /lpf (0-5) 04/26/21 Unknown Urine Bacteria (Auto) Negative (Negative) 04/26/21 Unknown SARS-CoV-2, RNA, NAAT NEGATIVE (NEGATIVE) 04/26/21 18:30 Impressions Chest X-Ray 04/26/21 15:21 XR chest 1V portable HISTORY: 75 years-old Male weakness acute weakness COMPARISON: Chest CT 03/21/2017, chest radiographs 03/12/2017 TECHNIQUE: Portable AP view of the chest FINDINGS: Cardiac silhouette is mildly enlarged. Loop recorder device. Chronic blunting of the costophrenic angles with mild bibasilar atelectasis/scarring. No pneumothorax, large pleural effusion, overt pulmonary edema or lobar airspace consolidation. Healed chronic right-sided rib fractures with degenerative changes of the shoulders and spine. IMPRESSION: No acute process. ACT 112: Negative or not required by law. The above report was generated using voice recognition software. It may contain grammatical, syntax or spelling errors. Electronically signed by: Josef Manriquez M.D. 04/26/2021 4:04 PM Abdomen/Pelvis CT 04/26/21 18:[address] WITHOUT CONTRAST CT DOSE: 693.30 mGy.cm HISTORY: Acute left flank pain with near syncope near syncope, L flank pain/side TECHNIQUE: Multiaxial CT images of the abdomen and pelvis were performed without contrast. A dose lowering technique was utilized adhering to the principles of ALARA. COMPARISON STUDY: CT abdomen and pelvis 03/12/2017 FINDINGS: Mild cardiomegaly with extensive coronary artery calcifications. Mild bibasilar atelectasis/scarring. No pneumatosis or pneumoperitoneum. There is an ill-defined peripheral wedge-shaped hypodense focus within the peripheral mid to inferior spleen measuring 3.4 x 3.0 cm on image 176 series 3 which is new from prior. Trace periureteral splenic stranding. No discrete laceration or subcapsular hematoma. Moderately atrophic pancreas. Unremarkable adrenal glands. Cholelithiasis without CT evidence of acute cholecystitis. Unremarkable liver. Nonspecific bilateral perinephric stranding. No renal or ureteral calculi or hydronephrosis. Prostamegaly. Urinary bladder wall thickening with partial distention. Extensive calcified plaque the abdominal aorta. No aneurysm or adenopathy. Calcifications of the vas deferens. There is no bowel obstruction or bowel wall thickening. There is mild fecal retention. Normal appendix. No ascites or mesenteric inflammation. Healed chronic right-sided rib fractures. Degenerative changes of the spine, pelvis and hips. No acute fracture identified. IMPRESSION: 1. Limited study without the use of IV contrast. 3.4 x 3.0 cm peripheral wedge- shaped hypodense focus within the posterior mid to inferior spleen with trace perisplenic inflammatory stranding is suggestive of an acute splenic infarct. 2. No renal or ureteral calculi or uropathy. 3. No bowel obstruction or bowel wall thickening. 4. Cholelithiasis. 5. Additional findings as above. ACT 112: Negative or not required by law. The above report was generated using voice recognition software. It may contain grammatical, syntax or spelling errors. Electronically signed by: Josef Manriquez M.D. 04/26/2021 7:[address] 04/26/21 18:08 CT head/brain wo con CLINICAL HISTORY: 75 years-old Male with dizzy, near syncope on xarelto. Acute dizziness with near syncopal episode TECHNIQUE: Multiple axial CT images of the head were obtained without contrast. A dose lowering technique was utilized adhering to the principles of ALARA. CT DOSE: 537.48 mGy.cm COMPARISON: Head CT 08/16/2016, brain MRI 08/16/2016 FINDINGS: No acute intracranial hemorrhage, midline shift, intracranial mass, hydrocephalus, territorial ischemia or abnormal extra-axial collection. Mild involutional changes with chronic micro-Rasco ischemic disease. Encephalomalacia is again noted within the right occipital, left parietal and left cerebellar hemispheres. Cerebral vascular calcifications. The calvarium is intact. Mastoid air cells are clear. Mild to moderate perios teal thickening of the maxillary and ethmoid sinuses. Unremarkable soft tissues and orbits. IMPRESSION: 1. No acute intracranial abnormality. 2. Multiple chronic infarcts redemonstrated. ACT 112: Negative or not required by law. The above report was generated using voice recognition software. It may contain grammatical, syntax or spelling errors. Electronically signed by: Josef Manriquez M.D. 04/26/2021 6:57 PM ECG Additional Comments: The study reveals AF at 87bpm with PVCs, no acute ischemic changes Code Status & VTE Plan VTE Prophylaxis Plan VTE Prophylaxis will be ordered: Yes PG Care Time/CCT Total # of Minutes Spent Total Time Spent with Patient: Total time spent is greater than 50% in coordination of care (as documented) at patient's floor/unit and/or counseling patient: Coding Level of Care Code INT OBSERVATION CARE 70M LVL 3 Diagnoses Near syncope R55 Splenic infarct D73.5 Elevated troponin I level R77.8 Permanent atrial fibrillation I48.21 Hypertension I10 Hypertension type: unspecified High cholesterol E78.00 Type 2 diabetes mellitus E11.9 Diabetes mellitus fci insulin use: with intermediate manager use (1) Hypertension Hypertension type: unspecified Qualified Code(s): I10 - Essential (primary) hypertension (2) Type 2 diabetes mellitus Diabetes mellitus intermediate manager insulin use: with fci use
[2021-04-26] MEDS ORDERED: GLUCOSE 40% GEL 15 GM TUBE PO PRN (22:10)
[2021-04-26] MEDS ORDERED: RIVAROXABAN 15 MG TAB PO SCH (22:10)
[2021-04-26] MEDS ORDERED: ONDANSETRON INJ 2 MG/ML 2 ML VIAL IV PRN (22:10)
[2021-04-26] MEDS ORDERED: INSULIN GLARGINE SOLOSTAR 100 UNITS/ML 3 ML PEN SQ SCH (22:10)
[2021-04-26] MEDS ORDERED: CARBOHYDRATES FOR HYPOGLYCEMIA PO PRN (22:10)
[2021-04-26] MEDS ORDERED: PRAVASTATIN SOD 40 MG TAB PO SCH (22:10)
[2021-04-26] MEDS ORDERED: DEXTROSE 50% 50 ML SYRINGE IV PRN (22:10)
[2021-04-26] MEDS ORDERED: GLUCOSE 10 TABS/TUBE PO PRN (22:10)
[2021-04-26] MEDS ORDERED: GLUCAGON FOR INJ 1 MG VIAL SQ PRN (22:10)
[2021-04-26] MEDS ORDERED: ACETAMINOPHEN 325 MG TAB PO PRN (22:10)
[2021-04-26] MEDS: LACTATED RINGER'S 1,000 ML IV SCH (23:12)
[2021-04-26] MEDS: INSULIN ASPART PER UNIT SC SCH (23:16)
[2021-04-27 08:22] LABS: Basophils # (auto) 0.02 K/uL (0-0.2); Basophils % (auto) 0.4 %; Eosinophils # (auto) 0.11 K/uL (0-0.5); Eosinophils % (auto) 2.1 %; Hematocrit (blood only) 36.8 % (42-52); Hemoglobin 13.2 g/dL (14.0-18.0); Immature Granulocytes # (auto) 0.01 K/uL (0.00-0.02); Immature Granulocytes % (auto) 0.2 %; Lymphocytes # (auto) 0.91 K/uL (1.2-3.4); Lymphocytes % (auto) 17.6 %; Mean Corpuscular Hemoglobin 31.9 pg (25-34); Mean Corpuscular Hgb Conc 35.9 g/dL (32-36); Mean Corpuscular Volume 88.9 fL (80-100); Monocytes # (auto) 0.45 K/uL (0.11-0.59); Monocytes % (auto) 8.7 %; Neutrophils # (auto) 3.67 K/uL (1.4-6.5); Platelet Count 128 K/uL (130-400); RDW Coefficient of Variation 12.7 % (11.5-14.5); Red Blood Count 4.14 M/uL (4.7-6.1); White Blood Count 5.17 K/uL (4.8-10.8)
[2021-04-27 08:40] LABS: BUN Creatinine Ratio 17.3 (10-20); Calcium 9.2 mg/dl (8.5-10.1); Creatinine Clr Calc Pharmacy 61.8 ml/min; Est GFR (African American) 76.8 ml/min; Est GFR (Non-African American) 66.2 ml/min; Potassium 3.7 mmol/L (3.5-5.1)
[2021-04-27] MEDS: INSULIN ASPART PER UNIT SC SCH ×2 (08:47→12:34)
[2021-04-27 08:59] LABS: Estimated Average Glucose 200 mg/dl; Hemoglobin A1C 8.6 % (4.5-5.6)
[2021-04-27] MEDS ORDERED: CHOLECALCIFEROL 1,000 UNITS 25 MCG TAB PO SCH (09:00)
[2021-04-27] MEDS ORDERED: METOPROLOL TARTRATE 25 MG TAB PO SCH (09:00)
--- NOTE | 2021-04-27 11:18 | Electrocardiogram Report ---
Test Reason : Blood Pressure : / mmHG Vent. Rate : 087 BPM Atrial Rate : 202 BPM P-R Int : 000 ms QRS Dur : 092 ms QT Int : 318 ms P-R-T Axes : 000 -19 078 degrees QTc Int : 382 ms Atrial fibrillation with premature ventricular or aberrantly conducted complexes Nonspecific ST and T wave abnormality Abnormal ECG Confirmed by Sekou Madden ([id number]) on 04/27/2021 11:18:13 AM Referred By: REFERRED SELF Confirmed By:Huy Madden
[2021-04-27] MEDS: LACTATED RINGER'S 1,000 ML IV SCH (11:32)
--- NOTE | 2021-04-27 13:28 | XCELERA ---
[id number]
--- NOTE | 2021-04-27 13:42 | Cardiology Consultation ---
Date of Consultation April 27, 2021 Assessment & Plan (1) Near syncope: (2) Splenic infarct: (3) Elevated troponin I level: (4) Permanent atrial fibrillation: (5) Mild mitral regurgitation: 1. Dizziness: The symptoms are longstanding in nature. However, he does report increased frequency recently. Often times his symptoms occur after taking these medications in the morning. Unfortunately, there has been no definitive diagnosis for these episodes. There is some suspicion that he suffers from intermittent pauses. None have been documented since admission. He did have 1 pause an outpatient monitoring in December of last year, but this occurred near midnight. He did not have symptoms of dizziness while wearing that monitor. At this point I thought it would be reasonable to discharge the patient and perform outpatient monitoring. If we can correlate significant bradycardia with his symptoms and a pacemaker would be indicated. I think he can continue his current dose of metoprolol at this time. 2. Splenic infarct: Likely related to his atrial fibrillation. I think would be reasonable to continue his Xarelto for anticoagulation although consideration should be given to changing him to Eliquis at full dose. 3. Mitral regurgitation: Mild 4. Atrial fibrillation: No overt symptoms from the arrhythmia. He appears to have adequate rate control on his current dose of metoprolol which was reduced previously. He has been maintained on reduced dose Xarelto based on fluctuations in his renal function. He may be a better candidate for Eliquis as this could be dosed at 5 mg twice daily based on his normal creatinine, age and weight. 5. Elevated troponin: Very mild elevation without any dynamic changes suggestive of acute coronary syndrome. He really did not have symptoms of chest discomfort leading up to his admission. I do not think we need to pursue this any further. History of Present Illness Reason for Consultation: Dizziness Requesting Physician: Ozzie Attending Physician: Dwight Reed DO History of Present Illness The patient is a 75-year-old gentleman with a long history of atrial fibrillation. He underwent pulmonary vein isolation approximately 12 years ago and implantation of a loop recorder around that time. However, he has developed permanent atrial fibrillation at this point. He has had some episodes of dizziness and presyncope over the years. This has prompted outpatient evaluation including 30 day event monitoring. No definitive etiology has been discovered, but there is some suspicion that he suffers from intermittent bradycardia. Yesterday the patient had several episodes of presyncope. The initial episode occurred while he was sitting. He describes this as a transient sensation of lightheadedness and presyncope lasting a few seconds. He then got up to go check his blood sugar and in the process became more lightheaded. He did not actually lose consciousness at any point. Due to the recurrent nature of his symptoms he sought evaluation in the emergency room. The patient has had similar symptoms over the years. These are generally infrequent and very transient. He has not lost consciousness recently. He did undergo a period of outpatient monitoring last fall. However, during that timeframe he did not have symptoms. Since being in the hospital he has felt well. He has not had recurrent symptoms of dizziness or presyncope. He has been ambulatory around the room. He is an otherwise active individual who is accustomed to routine activity. He states that he does get somewhat dyspneic at times, but this is not appear to be limiting. He has no exertional chest pain. He is generally not aware of palpitations. However, he states that if his heart rate is in the 60s on home monitoring he feels very poorly. Allergies Allergy/AdvReac Type Severity Reaction Status Date / Time bee venom protein (honey bee) Allergy Severe SWELLING, Verified 04/26/21 19:25 HIVES Home Medications Medication Instructions Recorded Confirmed Type cholecalciferol (vitamin D3) 25 1,000 units PO DAILY 10/30/18 04/26/21 History mcg (1,000 unit) capsule fenofibrate 150 mg capsule 150 mg PO QPM cap 10/30/18 04/26/21 History glipizide 10 mg tablet 10 mg PO QAM tab 10/30/18 04/26/21 History insulin glargine 100 unit/mL 20 unit SUBCUT QPM ml 10/30/18 04/26/21 History subcutaneous solution pravastatin 40 mg tablet 40 mg PO QPM #90 tab 10/30/18 04/26/21 History rivaroxaban 15 mg tablet 15 mg PO QPM #90 tab 10/30/18 04/26/21 History diphenhydramine HCl 25 mg tablet 50 mg PO DAILY PRN 08/14/20 04/26/21 History (Benadryl Allergy) epinephrine 0.3 mg/0.3 mL 0.3 mg IM Q15M PRN #2 ea 06/13/21 02/23/22 Rx injection, auto-injector (EpiPen 2-Jair) metoprolol tartrate 25 mg tablet 12.5 mg PO QAM 04/26/21 04/26/21 History Patient History Medical History 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 He did have some transient left flank discomfort. Still occasional discomfort in that area. This appears fairly mild and infrequent. He also had some shooting pains in the left shoulder. These symptoms did not bother him nor did they prompt his presentation to the emergency room. Physical Exam Physical Exam: The patient is alert and oriented. Mood and affect appeared normal. He answered all questions appropriately. HEENT: Pupils are equal and reactive to light and accommodation. Extraocular movements are intact. The sclerae are anicteric. Neuro: Cranial nerves intact Neck: Patient's neck is supple. He has palpable carotid pulses bilaterally without bruits on auscultation. There is no evidence of jugular venous distention. The thyroid is not enlarged. Lungs: Clear to auscultation bilaterally. He has good air movement without use of accessory muscles. No rales wheezes or rhonchi. Cardiac: Heart demonstrates an irregular rate and rhythm. Normal S1 and S2. No murmurs on examination. Pulses: The patient has palpable radial pulses bilaterally that are equal in intensity Extremities: There was no evidence of hypoperfusion. There is no cyanosis or clubbing. There is no edema. Some contraction of the right hand. Skin: I did not appreciate any rashes on examination today. Results & Data ([facility]) Vital Signs (Past 12 Hours) Vital Signs Temp Pulse Pulse Resp BP Pulse Ox 04/27/21 11:40 36.4 C L 65 18 121/74 98 04/27/21 07:19 82 04/27/21 03:08 36.4 C L 82 20 119/66 94 Laboratory Results Abnormal Lab Results 04/26/21 04/26/21 04/26/21 18:18 18:18 18:18 WBC 7.00 RBC 4.32 L Hgb 13.8 L Hct 39.6 L MCV 91.7 MCH 31.9 MCHC 34.8 RDW Std Deviation 43.7 RDW Coeff of [place] 13.0 Plt Count 145 MPV 12.3 H Immature Gran % (Auto) 0.0 Neut % (Auto) 68.3 Lymph % (Auto) 21.1 [place] % (Auto) 8.6 Eos % (Auto) 1.7 Baso % (Auto) 0.3 Neut # (Auto) 4.78 Lymph # (Auto) 1.48 [place] # (Auto) 0.60 H Eos # (Auto) 0.12 Baso # (Auto) 0.02 Immature Gran # (Auto) 0.00 Absolute Nucleated RBC Nucleated RBC % (auto) Sodium 136 Potassium 4.1 Chloride 100 Carbon Dioxide 26 Anion Gap 10 BUN 24 H Creatinine 1.38 Est Cr Clr Drug Dosing 53.4 Est GFR ( Amer) 58.4 Est GFR (Non-Af Amer) 50.4 BUN/Creatinine Ratio 17.4 Glucose 216 H POC Glucose Estimat Average Glucose Hemoglobin A1c Calcium 9.9 Magnesium Total Bilirubin 0.6 AST 17 ALT 12 Alkaline Phosphatase 67 Troponin I 0.05 H* Total Protein 8.0 Albumin 4.3 Globulin 3.7 Albumin/Globulin Ratio 1.2 Lipase TSH 3.514 Urine Color Urine Appearance Urine pH Ur Specific [place] Urine Protein Urine Glucose (UA) Urine Ketones Urine Blood Urine Nitrite Urine Bilirubin Urine Urobilinogen Ur Leukocyte Esterase Urine WBC (Auto) Urine RBC (Auto) U Hyaline Cast (Auto) U Epithel Cells (Auto) Urine Bacteria (Auto) SARS-CoV-2, RNA, NAAT 04/26/21 04/26/21 04/26/21 18:18 18:30 23:01 WBC RBC Hgb Hct MCV MCH MCHC RDW Std Deviation RDW Coeff of [place] Plt Count MPV Immature Gran % (Auto) Neut % (Auto) Lymph % (Auto) [place] % (Auto) Eos % (Auto) Baso % (Auto) Neut # (Auto) Lymph # (Auto) [place] # (Auto) Eos # (Auto) Baso # (Auto) Immature Gran # (Auto) Absolute Nucleated RBC Nucleated RBC % (auto) Sodium Potassium Chloride Carbon Dioxide Anion Gap BUN Creatinine Est Cr Clr Drug Dosing Est GFR ( Amer) Est GFR (Non-Af Amer) BUN/Creatinine Ratio Glucose POC Glucose 164 H Estimat Average Glucose Hemoglobin A1c Calcium Magnesium 1.8 Total Bilirubin AST ALT Alkaline Phosphatase Troponin I Total Protein Albumin Globulin Albumin/Globulin Ratio Lipase 20 TSH Urine Color Urine Appearance Urine pH Ur Specific [place] Urine Protein Urine Glucose (UA) Urine Ketones Urine Blood Urine Nitrite Urine Bilirubin Urine Urobilinogen Ur Leukocyte Esterase Urine WBC (Auto) Urine RBC (Auto) U Hyaline Cast (Auto) U Epithel Cells (Auto) Urine Bacteria (Auto) SARS-CoV-2, RNA, NAAT NEGATIVE 04/26/21 04/27/21 04/27/21 Unknown 00:43 07:48 WBC 5.17 RBC 4.14 L Hgb 13.2 L Hct 36.8 L MCV 88.9 MCH 31.9 MCHC 35.9 RDW Std Deviation 41.0 RDW Coeff of [place] 12.7 Plt Count 128 L MPV 12.0 H Immature Gran % (Auto) 0.2 Neut % (Auto) 71.0 Lymph % (Auto) 17.6 [place] % (Auto) 8.7 Eos % (Auto) 2.1 Baso % (Auto) 0.4 Neut # (Auto) 3.67 Lymph # (Auto) 0.91 L [place] # (Auto) 0.45 Eos # (Auto) 0.11 Baso # (Auto) 0.02 Immature Gran # (Auto) 0.01 Absolute Nucleated RBC 0.00 Nucleated RBC % (auto) 0.0 Sodium Potassium Chloride Carbon Dioxide Anion Gap BUN Creatinine Est Cr Clr Drug Dosing Est GFR ( Amer) Est GFR (Non-Af Amer) BUN/Creatinine Ratio Glucose POC Glucose Estimat Average Glucose Hemoglobin A1c Calcium Magnesium Total Bilirubin AST ALT Alkaline Phosphatase Troponin I 0.06 H* Total Protein Albumin Globulin Albumin/Globulin Ratio Lipase TSH Urine Color Yellow Urine Appearance Clear Urine pH 5.0 Ur Specific [place] 1.017 Urine Protein 2+ H Urine Glucose (UA) 2+ H Urine Ketones Trace H Urine Blood 1+ H Urine Nitrite Negative Urine Bilirubin Negative Urine Urobilinogen Negative Ur Leukocyte Esterase Negative Urine WBC (Auto) 1-5 Urine RBC (Auto) 0-4 U Hyaline Cast (Auto) 0 U Epithel Cells (Auto) 0-5 Urine Bacteria (Auto) Negative SARS-CoV-2, RNA, NAAT 04/27/21 04/27/21 04/27/21 07:48 07:48 07:48 WBC RBC Hgb Hct MCV MCH MCHC RDW Std Deviation RDW Coeff of [place] Plt Count MPV Immature Gran % (Auto) Neut % (Auto) Lymph % (Auto) [place] % (Auto) Eos % (Auto) Baso % (Auto) Neut # (Auto) Lymph # (Auto) [place] # (Auto) Eos # (Auto) Baso # (Auto) Immature Gran # (Auto) Absolute Nucleated RBC Nucleated RBC % (auto) Sodium 139 Potassium 3.7 Chloride 105 Carbon Dioxide 27 Anion Gap 7 BUN 19 Creatinine 1.10 Est Cr Clr Drug Dosing 61.8 Est GFR ( Amer) 76.8 Est GFR (Non-Af Amer) 66.2 BUN/Creatinine Ratio 17.3 Glucose 74 POC Glucose Estimat Average Glucose 200 Hemoglobin A1c 8.6 H Calcium 9.2 Magnesium Total Bilirubin AST ALT Alkaline Phosphatase Troponin I 0.05 H* Total Protein Albumin Globulin Albumin/Globulin Ratio Lipase TSH Urine Color Urine Appearance Urine pH Ur Specific [place] Urine Protein Urine Glucose (UA) Urine Ketones Urine Blood Urine Nitrite Urine Bilirubin Urine Urobilinogen Ur Leukocyte Esterase Urine WBC (Auto) Urine RBC (Auto) U Hyaline Cast (Auto) U Epithel Cells (Auto) Urine Bacteria (Auto) SARS-CoV-2, RNA, NAAT 04/27/21 11:15 WBC RBC Hgb Hct MCV MCH MCHC RDW Std Deviation RDW Coeff of [place] Plt Count MPV Immature Gran % (Auto) Neut % (Auto) Lymph % (Auto) [place] % (Auto) Eos % (Auto) Baso % (Auto) Neut # (Auto) Lymph # (Auto) [place] # (Auto) Eos # (Auto) Baso # (Auto) Immature Gran # (Auto) Absolute Nucleated RBC Nucleated RBC % (auto) Sodium Potassium Chloride Carbon Dioxide Anion Gap BUN Creatinine Est Cr Clr Drug Dosing Est GFR ( Amer) Est GFR (Non-Af Amer) BUN/Creatinine Ratio Glucose POC Glucose 201 H Estimat Average Glucose Hemoglobin A1c Calcium Magnesium Total Bilirubin AST ALT Alkaline Phosphatase Troponin I Total Protein Albumin Globulin Albumin/Globulin Ratio Lipase TSH Urine Color Urine Appearance Urine pH Ur Specific [place] Urine Protein Urine Glucose (UA) Urine Ketones Urine Blood Urine Nitrite Urine Bilirubin Urine Urobilinogen Ur Leukocyte Esterase Urine WBC (Auto) Urine RBC (Auto) U Hyaline Cast (Auto) U Epithel Cells (Auto) Urine Bacteria (Auto) SARS-CoV-2, RNA, NAAT Diagnostic Findings Echocardiogram performed today revealed preserved LV systolic function. Moderate LVH. Mild mitral regurgitation. PG Care Time/CCT Total # of Minutes Spent Total Time Spent with Patient: Total time spent is greater than 50% in coordination of care (as documented) at patient's floor/unit and/or counseling patient: Coding Level of Care Code 19482 Initial Inpt Care Lvl 3 Diagnoses Near syncope R55 Splenic infarct D73.5 Elevated troponin I level R77.8 Permanent atrial fibrillation I48.21 Mild mitral regurgitation I34.0
--- NOTE | 2021-04-27 19:59 | Discharge Summary ---
Date of Service April 27, 2021 Admission HPI Per Admitting Provider 75yo male with history of atrial fibrillation on Rivaroxaban, HTN, HLP and DM presenting with several near-syncopal events that occurred earlier today. Patient states that he experiences episodes of dizziness intermittently for years. This afternoon he was sitting down watching TV when he became very light headed. He also had some discomfort in his upper chest, left upper abdomen and between his shoulder blades. The sensation lasted only 3-4 seconds. He got up and walked to the kitchen to check his blood sugar and had 3-4 subsequent episodes of lightheadedness. These episodes were brief in duration as well. No additional chest pain. No palpitations, SOB, nausea. Patient has had similar complaints in the past. He follows with Cardiology - last seen by Dr. Murillo on 12/15/20. He had an event monitor over the summer which revealed a 3.8 second pause. His Metoprolol was decreased to 12.5mg daily. A permanent pacer was discussed but not pursued at that time. Presently feels well. No additional complaints. No chest pain at present. Patient is active and independent at home. Denies exertional CP or dyspnea. ER Course: ASA 324mg Principal Diagnosis Near syncope Discharge Exam In general he is awake and alert pleasant no distress. HEENT normocephalic atraumatic mucous membranes moist. Breathing unlabored no accessory muscle use good effort. Skin shows no rashes no pallor or icterus. Neuro without focal deficits. Discharge Data Allergies Allergy/AdvReac Type Severity Reaction Status Date / Time bee venom protein (honey bee) Allergy Severe SWELLING, Verified 04/26/21 19:25 HIVES Consultations 04/26/21 19:44 ED Decision to Admit Stat 04/27/21 08:28 Consult Cardiology Routine Ordered Studies 04/26/21 18:08 CT abd pelvis wo con Stat CT head/brain wo con Stat Hospital Course (1) Near syncope: Etiology not entirely clear. But no overall worrisome findings. -Patient himself notes that previously whenever he was started on oral mag supplement in the fall he had similar symptoms, stopped the supplement that went away. He was recently restarted on the supplement the symptoms came back. I discussed with him it would be extremely odd for a magnesium supplement to cause the symptoms, and yet at the same time, it is a little bit hard to discount his repeated cause/effect account for his symptoms. Given that his heart rates appear to be fairly easy to control, and his mag is 1.8discussed it would be okay to stop the mag supplementation. If replacement were truly needed in the future, could do so by different means than what he is currently been taking -Seen by cardiology as wellplan as below: (1) Near syncope: (2) Splenic infarct: (3) Elevated troponin I level: (4) Permanent atrial fibrillation: (5) Mild mitral regurgitation: 1. Dizziness: The symptoms are longstanding in nature. However, he does report increased frequency recently. Often times his symptoms occur after taking these medications in the morning. Unfortunately, there has been no definitive diagnosis for these episodes. There is some suspicion that he suffers from intermittent pauses. None have been documented since admission. He did have 1 pause an outpatient monitoring in December of last year, but this occurred near midnight. He did not have symptoms of dizziness while wearing that monitor. At this point I thought it would be reasonable to discharge the patient and perform outpatient monitoring. If we can correlate significant bradycardia with his symptoms and a pacemaker would be indicated. I think he can continue his current dose of metoprolol at this time. 2. Splenic infarct: Likely related to his atrial fibrillation. I think would be reasonable to continue his Xarelto for anticoagulation although consideration should be given to changing him to Eliquis at full dose. 3. Mitral regurgitation: Mild 4. Atrial fibrillation: No overt symptoms from the arrhythmia. He appears to have adequate rate control on his current dose of metoprolol which was reduced previously. He has been maintained on reduced dose Xarelto based on fluctuations in his renal function. He may be a better candidate for Eliquis as this could be dosed at 5 mg twice daily based on his normal creatinine, age and weight. 5. Elevated troponin: Very mild elevation without any dynamic changes suggestive of acute coronary syndrome. He really did not have symptoms of chest discomfort leading up to his admission. I do not think we need to pursue this any further. As it relates to the splenic infarctafter discussion with cardiology, discussed with patient as well. Not entirely clear if the "failure" of Xarelto is truly a failure, or if he would simply need 20 mg instead of 15. That said, case management checked into cost, and Eliquis sounds to be identical and cost of the Xarelto. Given that treatment failures on Eliquis or even less common than Xarelto, after discussion with patient it seemed best to simply change to the Eliquis Stable for home Total Time Total Time Spent Total Time Spent (In Minutes): Less than 30 Discharge Plan Discharge Items Patient Disposition: Home - Self-Care Reason For Visit: NEAR SYNCOPE X 4 Discharge Diagnosis: Lightheadedness Activity: Resume your previous activity Non-emergency contact: Primary Care Provider and Power Originator Call non-emergency contact if: you have any medication questions Follow-up/Referrals: Yamil Husain PA-C [Primary Care Provider] - Diet: Carb Consistent or DM2 Addtl Attending Provider Instructions: Dizziness -It is actually not entirely clear what was causing her symptoms. Fortunately we did not see anything bigger or worrisome as the cause. To that end, it is safe to get you home -Dr. Madden will follow your heart rhythms to look for any sort of rhythm problems causing your symptomshis office will be in contact with you -Your recollection of "cause and effect" of when you take the magnesium supplement is definitely worth looking at further. Like we discussed, while I have never seen someone have symptoms like that for magnesium supplementation, and your levels were at the low end of normal (not high), the fact that you started it before and had similar symptoms, stopped it and the symptoms went away, restarted it and the symptoms came back definitely makes it worth having you stop it again and follow how you are feeling. If low magnesium became a legitimate problem (usually we see that because the low magnesium makes it harder to control heart rhythm issuesso even that is usually a very indirect "[id number]", and definitely not happening with the right now) then there are other ways that we can supplement if need be Splenic infarct -The CT scan incidentally showed a clot in your spleen. Is actually fairly common problem with atrial fibrillation when people are not on blood thinners. You are on the Xarelto, so it really begs the question of if the Xarelto is simply failing you, or if you would do better on 20 mg instead of 15. Our outsole caser were in the numbers, and Eliquisa similar blood thinner, but one that we see failures on less oftenis covered at the same $20 a month as the Xarelto was. The simplest answer to this problem will be to have you stop taking the Xarelto, and take the Eliquis 5 mg twice a day instead. [facility] is certainly not a time critical nature to switching over, so it would be reasonable to continue your Xarelto until the Eliquis arrives Pending Studies at Discharge: No Stand-Alone Forms: My [facility], Smoking Cessation Medications and DC Order Prescriptions: New Eliquis 5 mg tablet 5 mg PO BID Qty: 180 RF: 0 Eliquis 5 mg tablet 5 mg PO BID Qty: 30 RF: 0 Continued fenofibrate 150 mg capsule 150 mg PO QPM RF: 0 glipizide 10 mg tablet 10 mg PO QAM RF: 0 pravastatin 40 mg tablet 40 mg PO QPM Qty: 90 RF: 0 insulin glargine 100 unit/mL solution 20 unit subcut QPM RF: 0 cholecalciferol (vitamin D3) 1,000 unit capsule 1,000 units PO DAILY RF: 0 diphenhydramine HCl [Benadryl Allergy] 25 mg Tablet 50 mg PO DAILY PRN (Reason: Allergic Reaction) RF: 0 epinephrine [EpiPen 2-Jair] 0.3 mg/0.3 mL auto-injector 0.3 mg IM Q15M PRN (Reason: anaphylaxis) Qty: 2 RF: 0 metoprolol tartrate 25 mg tablet 12.5 mg PO QAM RF: 0 Discontinued Xarelto 15 mg tablet 15 mg PO QPM Qty: 90 RF: 0 Discharge Orders: Discharge Order (Routine); Ordered 04/27/21 Ordered By: Dwight Reed Admission Data Admit Date/Time: 04/26/21 20:22 Attending Provider: Dwight Reed Admit Provider: Theresa Horne Primary Care Provider: Yamil Husain Other Providers: Theresa Horne ; Andrea Murillo Other Interventions: Discharge Summary Assessment (RN) Last Done: 04/27/21 15:56 Coding Level of Care Code 98608 OBS Care - Discharge Diagnoses Near syncope R55
== END 2021-04-27 16:56 | disposition home or self-care (01) ==
LOC: 2W 15:03 → ED 15:03 → SUATTDRO 20:22 → 2W 21:35